=== PATIENT | female | born 1930 | race Caucasian/White ===

== ENCOUNTER → 2017-01-11 | Outpatient (CLI) | payer OTHER ==
[~2017-01-11] MED LIST: ACET-1311 PO; ASCA500 PO; ASPEC81 PO; ATV1 PO; ATV5 PO; B-COTAB53 PO; BIOT1TAB5 PO; CHOL1000 PO; CLC100 PO; CMD5 PO; COEN1TAB3 PO; CRS10 PO; ENOX40IN SQ; FLUO10CA48 PO; GLC/500 PO; GLUC10007; HYDC25 PO; HYDCR25; HYDR12.55 PO; LISI20TA3 PO; LISI40TA PO; MAGN400T6 PO; MECL1TAB40 PO; METH10TA6 PO; MRLP17 PO; MULT-506 PO; OSCD250 PO; OXYC-57 PO; TRAM-10 PO; VITA1TAB4 PO; VITA400C15 PO
--- NOTE | 2017-01-11 15:08 | MAMMOGRAPHY REPORT ---
UNILATERAL LEFT DIGITAL SCREENING MAMMOGRAM TOMOSYNTHESIS WITH CAD: 01/11/2017 CLINICAL HISTORY: Asymptomatic. Personal history of breast cancer. TECHNIQUE: Breast tomosynthesis in addition to standard 2D mammography was performed. Current study was also evaluated with a Computer Aided Detection (CAD) system. Left CC and MLO 2-D and tomosynth esis images were obtained. COMPARISON: Comparison is made to exams dated: 10/20/2014 mammogram, 12/27/2015 mammogram, 08/11/2013 mammogram, 08/09/2012 mammogram, 08/03/2011 mammogram, and 07/21/2010 mammogram - [facility]. BREAST COMPOSITION: There are scattered areas of fibroglandular density in the left breast. FINDINGS: Status post right mastectomy. There are no suspicious masses, calcifications, or areas o f architectural distortion noted in the left breast. There has been no significant interval change compared to prior exams. Scattered benign appearing rodlike calcifications are again noted. IMPRESSION: ACR BI-RADS CATEGORY 2: BENIGN There is no mammographic evidence of malignancy. A 1 year screening mammogram is recommended. The p atient will receive written notification of the results. Approximately 10% of breast cancers are not detected with mammography. A negative mammographic repor t should not delay biopsy if a clinically suggestive mass is present. Yennifer Macedo M.D. /:01/11/2017 14:14:23 Anti Air Warfare Operations Officer: Deya DURAND)([place]), [facility] letter sent: Normal 1/2 BI-RADS Code: ACR BI-RADS Category 2: Benign
== END | disposition home or self-care (01) ==
LOC: C.MAMM 13:38
PROVIDERS: ATTEND Physician Assistant
DX: Z12.31 Encounter for screening mammogram for malignant neoplasm of breast (principal); Z85.3 Personal history of malignant neoplasm of breast; Z08 Encounter for follow-up examination after completed treatment for malignant neoplasm; Z90.11 Acquired absence of right breast and nipple

== ENCOUNTER → 2017-04-03 | Day surgery (SDC) | payer OTHER ==
[2017-03-15 11:11] VITALS: Ht 168.9 cm; Wt 107.7 kg
[~2017-04-03] VITALS: Ht 168.9 cm; Wt 107.7 kg
[~2017-04-03] MED LIST changes: +500ML BSS 0.3ML EPI 1:1000PF IRRIG ONE; -ACET-1311 PO; +ACETAMINOPHEN 325 MG TAB PO PRN; +AMVISC PLUS 0.8ML SYRINGE INT OCU ONE; +ATROPINE SULFATE 0.1 MG/ML 5ML SYR IV PRN; -ATV1 PO; -ATV5 PO; +BSS FLUSH ONE; -CLC100 PO; -ENOX40IN SQ; +EpHEDrine SULFATE INJ 50 MG/ML AMP IV PRN; +EpINEphrine INJ 1MG/ML AMP 1 MG/ML AMP ONE; +FENTANYL CITRATE INJ 50 MCG/1 ML 2 ML VIAL IV PRN; +FLUMAZENIL 0.1 MG/1 ML 10 ML VIAL IV PRN; +GATIFLOXACIN OP SOLN PER DROP CHARGE OPL SCH; -GLUC10007; -HYDC25 PO; -HYDCR25; +HYDROmorphone INJ 2 MG/ML SYR/VIAL IV PRN; +LABETALOL HCL IV 5 MG/ML 20ML IV PRN; +LACTATED RINGER'S 1000ML 500 ML IV SCH; +LIDOCAINE 3.5% OPH GEL PER APPLICATION CHARGE ONE; +LIDOCAINE HCL 1% MPF 2 ML VIAL ONE; -LISI40TA PO; +MEPERIDINE HCL 25 MG/ML CARP IV PRN; +MIDAZOLAM HCL 1 MG/ML 2ML VIAL ONE; -MRLP17 PO; +NALOXONE HCL 0.4 MG/1 ML VIAL/CARP IV PRN; +OCUCOAT 1 ML SOLN IO ONE; +ONDANSETRON INJ 2 MG/ML 2 ML VIAL IV PRN; -OSCD250 PO; -OXYC-57 PO; +PHENYLEPHRINE 100MCG/ML 5ML SYR IV PRN; +PHENYLEPHRINE HCL 10% OP SOLN PER DROP CHARGE OPL SCH; +POVIDONE-IODINE OP SOLN 30 ML BTL ONE; +PROPARACAINE 0.5% OP SOLN PER DROP CHARGE OPL SCH; +TOBRAMYCIN/DEXAMETHASONE OPH OINT PER APPLN CHARGE ONE; -VITA400C15 PO
[2017-04-03] MEDS: PHENYLEPHRINE HCL 2.5% OP SOLN PER DROP CHARGE OPL SCH ×2 (07:51→07:57)
[2017-04-03] MEDS: TROPICAMIDE 1% OP SOLN PER DROP CHARGE OPL SCH ×2 (07:52→07:58)
[2017-04-03] MEDS: CYCLOPENTOLATE HCL 1% OP SOLN PER DROP CHARGE OPL SCH ×2 (07:53→07:59)
[2017-04-03] MEDS: KETOROLAC 0.5% OP SOLN PER DROP CHARGE OPL SCH ×2 (07:55→08:00)
[2017-04-03] MEDS: GATIFLOXACIN OP SOLN PER DROP CHARGE OPL SCH ×2 (07:56→08:06)
--- NOTE | 2017-04-03 08:30 | History & Physical Bridge - SC ---
H&P Re-Evaluation Bridge Note: I have examined the patient, reviewed the History & Physical and in the interval since the performance of the History & Physical I have noted the following changes of clinical significance: Diagnosis: Left Cataract Procedure: Left Cataract Removal with Lens Implant No changes noted
--- NOTE | 2017-04-03 09:06 | Discharge Instructions-SurgCtr ---
Discharge Instructions Date of Service Apr 03, 2017. Visit Reason for Visit: Cataract Left Eye Discharge Discharge Diagnosis / Problem: cataract Discharge Goals Goal(s): Improve function Medications Stopped Medications Name(s): metformin last dose 03/31/17 Activity Recommendations Activity Limitations: per Instructions/Follow-up section Anesthesia . Post Anesthesia Instructions: If you have had General Anesthesia or IV Sedation: * Do not drive today. * Resume driving when surgeon permits. * Do not make important decisions or sign legal documents today. * Call surgeon for: 1. Temperature elevations greater than 101 degrees F. 2. Uncontrollable pain. 3. Excessive bleeding. 4. Persistent nausea and vomiting. 5. Medication intolerance (nausea, vomiting or rash). * For nausea and vomiting use only clear liquids such as: tea, soda, bouillon until nausea subsides, then gradually increase diet as tolerated. * If you have any concerns or questions, call your surgeon's office. If physician is unavailable and it is an emergency, call 911 or go to the nearest emergency room. . Instructions / Follow-Up Instructions / Follow-Up ACTIVITY RECOMMENDATIONS: * No strenuous lifting, jogging or running for 4 days * No swimming or yard work for 1 week. * Limited bending is permitted, such as putting on shoes. RETURN TO SCHOOL/WORK: No work until seen by physician in office. MEDICATIONS: Resume previous medications unless instructed otherwise by your surgeon. This includes eye drops for glaucoma. Zymaxid/Gatifloxacin (castillo cap) - one drop every 2 hours until bedtime Nevanac/Ilevro/Prolensa/Ketorolac (bailey cap) - one drop every 4 hours until bedtime Prednisolone (white/pink cap, SHAKE WELL) - one drop every 2 hours until bedtime Starting tomorrow - all 3 drops every 4 hours until seen in the office Optive drops - as needed for discomfort SPECIAL CARE INSTRUCTIONS: * Wear eyeshield when sleeping, for four nights. * You may wear your own glasses or sunglasses while awake. * You may read or watch TV * You may shower and wash your face, but be gentle around the eye and pat dry. * Blurry vision and mild irritation are normal. * Call office if pain is more severe or vision becomes dark at . FOLLOW UP VISIT: Follow-up with Dr Chapman tomorrow. Diet Recommendations Home Diet: resume previous diet Procedures Procedures Performed: Left Cataract Phacoemulsification With Intraocular Lens Implant Pending Studies Studies pending at discharge: no Medical Emergencies . Who to Call and When: Medical Emergencies: If at any time you feel your situation is an emergency, please call 911 immediately. . Non-Emergent Contact Non-Emergency issues call your: Beauty School Instructor . . "Provider Documentation" section prepared by Edenilson Chapman. .
--- NOTE | 2017-04-03 09:07 | [facility] Operative Report ---
Operative Report Date of Service Apr 03, 2017. Operative Report 1. PREOPERATIVE DIAGNOSIS: Cataract of the left eye. 2. POSTOPERATIVE DIAGNOSIS: Same. 3. PROCEDURE: Phacoemulsification with intraocular lens implantation of the left eye. SURGEON: Dr. Edenilson Chapman. ANESTHESIA: Topical Lidocaine gel, 1% Non- Preserved intracameral Lidocaine, and monitored intravenous sedation. INDICATIONS FOR THE PROCEDURE: The patient is a 86 - year-old female with a history of cataract of the left eye causing significant visual impairment. The details of the proposed procedure were explained to the patient who asked appropriate questions and following discussion of all risks, benefits and alternatives agreed to have the procedure done. 4. OPERATION AND FINDINGS: DESCRIPTION OF PROCEDURE: After informed consent was obtained, the patient was brought to the Operating Room at the [facility]. The patient was placed in a supine position and then the left eye was prepped and draped in the usual sterile fashion for intraocular surgery. A drop of topical Lidocaine gel was placed in the operative eye. A wire lid speculum was then placed in the fornices. A corneal paracentesis was then created temporally. The Non-Preserved Lidocaine was then instilled into the anterior chamber. The anterior chamber was then pressurized with viscoelastic. A 2.0 mm clear corneal incision was then created temporally. A cystotome was inserted into the anterior chamber and used to create a tear in the anterior lens capsule. This capsular tear was then used to create a small flap and the flap was dragged in a counterclockwise direction in order to create a continuous curvilinear capsulorrhexis. Hydrodissection was accomplished with balanced salt solution. Phacoemulsification of the lens nucleus was then performed in a standard [id number]-[id number] technique. The phaco time was 19 seconds with an average power of 14 %. The remaining cortical material was removed using irrigation aspiration. The capsular bag was then filled with viscoelastic. A Bausch & Lomb MI60L +20.0 diopters lens was then loaded into the injector and injected into the capsular bag. The remaining viscoelastic was removed with the irrigation aspiration handpiece. The wound was hydrated and then checked and found to be watertight. The intraocular pressure was checked and found to be adequate. The wire lid speculum was removed and the patient's face was cleaned and dried. TobraDex ointment was placed in the inferior fornix. The patient was discharged to the Recovery Room having tolerated the procedure well. There were no complications. The patient will be seen tomorrow in the office for follow-up. I attest to the content of the Intraoperative Record and any orders documented therein. Any exceptions are noted below.
[2017-04-03 09:10] VITALS: TEMP 36.6
--- NOTE | 2017-04-03 09:23 | Anesthesia Progress Nt - [facility] ---
Anesthesia Post Op Note Date & Time Apr 03, 2017 at 09:23 Vital Signs Pain Intensity: 0 Vital Signs Past 12 Hours Date Time Temp Pulse Resp B/P (MAP) Pulse Ox O2 Delivery O2 Flow Rate FiO2 04/03/17 09:10 36.6 48 16 162/72 (102) 96 Room Air 04/03/17 07:40 36.4 49 18 164/89 (114) 95 Room Air Notes Mental Status: alert / awake / arousable, participated in evaluation Pt Amnestic to Procedure: Yes Nausea / Vomiting: adequately controlled Pain: adequately controlled Airway Patency, RR, SpO2: stable & adequate BP & HR: stable & adequate Hydration State: stable & adequate Anesthetic Complications: no major complications apparent
[2017-04-03 09:36] VITALS: BP 155/79; PULSE 45; O2SAT 98
== END | disposition home or self-care (01) ==
LOC: X.SURG 07:22
PROVIDERS: ATTEND Ophthalmology
DX: H26.9 Unspecified cataract (principal); H40.9 Unspecified glaucoma; I48.0 Paroxysmal atrial fibrillation; M19.90 Unspecified osteoarthritis, unspecified site; E11.36 Type 2 diabetes mellitus with diabetic cataract; E66.9 Obesity, unspecified; Z90.11 Acquired absence of right breast and nipple; Z96.659 Presence of unspecified artificial knee joint; Z86.711 Personal history of pulmonary embolism; Z68.37 Body mass index [BMI] 37.0-37.9, adult; Z88.1 Allergy status to other antibiotic agents; Z79.01 Long term (current) use of anticoagulants

== ENCOUNTER → 2017-05-29 | Day surgery (SDC) | payer OTHER ==
[2017-05-04 12:10] VITALS: Ht 168.9 cm; Wt 107.7 kg
[~2017-05-29] VITALS: Ht 168.9 cm; Wt 107.7 kg
[~2017-05-29] MED LIST changes: -FENTANYL CITRATE INJ 50 MCG/1 ML 2 ML VIAL IV PRN; -FLUMAZENIL 0.1 MG/1 ML 10 ML VIAL IV PRN; -GATIFLOXACIN OP SOLN PER DROP CHARGE OPL SCH; -HYDROmorphone INJ 2 MG/ML SYR/VIAL IV PRN; -LABETALOL HCL IV 5 MG/ML 20ML IV PRN; -MEPERIDINE HCL 25 MG/ML CARP IV PRN; -NALOXONE HCL 0.4 MG/1 ML VIAL/CARP IV PRN; -ONDANSETRON INJ 2 MG/ML 2 ML VIAL IV PRN; -PHENYLEPHRINE 100MCG/ML 5ML SYR IV PRN; -PHENYLEPHRINE HCL 10% OP SOLN PER DROP CHARGE OPL SCH; +PHENYLEPHRINE HCL 10% OP SOLN PER DROP CHARGE OPR SCH; -PROPARACAINE 0.5% OP SOLN PER DROP CHARGE OPL SCH; +PROPARACAINE 0.5% OP SOLN PER DROP CHARGE OPR SCH
[2017-05-29] MEDS: PHENYLEPHRINE HCL 2.5% OP SOLN PER DROP CHARGE OPR SCH ×2 (10:55→11:01)
[2017-05-29] MEDS: TROPICAMIDE 1% OP SOLN PER DROP CHARGE OPR SCH ×2 (10:56→11:01)
[2017-05-29] MEDS: CYCLOPENTOLATE HCL 1% OP SOLN PER DROP CHARGE OPR SCH ×2 (10:57→11:02)
[2017-05-29] MEDS: KETOROLAC 0.5% OP SOLN PER DROP CHARGE OPR SCH ×2 (10:58→11:03)
[2017-05-29] MEDS: GATIFLOXACIN OP SOLN PER DROP CHARGE OPR SCH ×2 (10:59→11:05)
--- NOTE | 2017-05-29 11:21 | History & Physical Bridge - SC ---
H&P Re-Evaluation Bridge Note: I have examined the patient, reviewed the History & Physical and in the interval since the performance of the History & Physical I have noted the following changes of clinical significance: No changes noted
--- NOTE | 2017-05-29 12:01 | Discharge Instructions-SurgCtr ---
Discharge Instructions Date of Service May 29, 2017. Visit Reason for Visit: Right Cataract Discharge Discharge Diagnosis / Problem: cataract Discharge Goals Goal(s): Improve function Activity Recommendations Activity Limitations: per Instructions/Follow-up section Anesthesia . Post Anesthesia Instructions: If you have had General Anesthesia or IV Sedation: * Do not drive today. * Resume driving when surgeon permits. * Do not make important decisions or sign legal documents today. * Call surgeon for: 1. Temperature elevations greater than 101 degrees F. 2. Uncontrollable pain. 3. Excessive bleeding. 4. Persistent nausea and vomiting. 5. Medication intolerance (nausea, vomiting or rash). * For nausea and vomiting use only clear liquids such as: tea, soda, bouillon until nausea subsides, then gradually increase diet as tolerated. * If you have any concerns or questions, call your surgeon's office. If physician is unavailable and it is an emergency, call 911 or go to the nearest emergency room. . Instructions / Follow-Up Instructions / Follow-Up ACTIVITY RECOMMENDATIONS: * No strenuous lifting, jogging or running for 4 days * No swimming or yard work for 1 week. * Limited bending is permitted, such as putting on shoes. RETURN TO SCHOOL/WORK: No work until seen by physician in office. MEDICATIONS: Resume previous medications unless instructed otherwise by your surgeon. This includes eye drops for glaucoma. Zymaxid/Gatifloxacin (castillo cap) - one drop every 2 hours until bedtime Nevanac/Ilevro/Prolensa/Ketorolac (baliey cap) - one drop every 4 hours until bedtime Prednisolone/Durezol (white/pink cap, SHAKE WELL) - one drop every 2 hours until bedtime Starting tomorrow - all 3 drops every 4 hours until seen in the office Optive drops - as needed for discomfort SPECIAL CARE INSTRUCTIONS: * Wear eyeshield when sleeping, for four nights. * You may wear your own glasses or sunglasses while awake. * You may read or watch TV * You may shower and wash your face, but be gentle around the eye and pat dry. * Blurry vision and mild irritation are normal. * Call office if pain is more severe or vision becomes dark at . FOLLOW UP VISIT: Follow-up with Dr Chapman tomorrow. Diet Recommendations Home Diet: resume previous diet Procedures Procedures Performed: Right Cataract Phacoemulsification With Intraocular Lens Implant Pending Studies Studies pending at discharge: no Medical Emergencies . Who to Call and When: Medical Emergencies: If at any time you feel your situation is an emergency, please call 911 immediately. . Non-Emergent Contact Non-Emergency issues call your: Door Repairer Bus . . "Provider Documentation" section prepared by Edenilson Chapman. .
--- NOTE | 2017-05-29 12:01 | [facility] Operative Report ---
Operative Report Date of Service May 29, 2017. Operative Report 1. PREOPERATIVE DIAGNOSIS: Cataract of the right eye. 2. POSTOPERATIVE DIAGNOSIS: Same. 3. PROCEDURE: Phacoemulsification with intraocular lens implantation of the right eye. SURGEON: Dr. Edenilson Chapman. ANESTHESIA: Topical Lidocaine gel, 1% Non- Preserved intracameral Lidocaine, and monitored intravenous sedation. INDICATIONS FOR THE PROCEDURE: The patient is a 86 - year-old female with a history of cataract of the right eye causing significant visual impairment. The details of the proposed procedure were explained to the patient who asked appropriate questions and following discussion of all risks, benefits and alternatives agreed to have the procedure done. 4. OPERATION AND FINDINGS: DESCRIPTION OF PROCEDURE: After informed consent was obtained, the patient was brought to the Operating Room at the [facility]. The patient was placed in a supine position and then the right eye was prepped and draped in the usual sterile fashion for intraocular surgery. A drop of topical Lidocaine gel was placed in the operative eye. A wire lid speculum was then placed in the fornices. A corneal paracentesis was then created temporally. The Non-Preserved Lidocaine was then instilled into the anterior chamber. The anterior chamber was then pressurized with viscoelastic. A 2.0 mm clear corneal incision was then created temporally. A cystotome was inserted into the anterior chamber and used to create a tear in the anterior lens capsule. This capsular tear was then used to create a small flap and the flap was dragged in a counterclockwise direction in order to create a continuous curvilinear capsulorrhexis. Hydrodissection was accomplished with balanced salt solution. Phacoemulsification of the lens nucleus was then performed in a standard [id number]-eghsobu technique. The phaco time was 27 seconds with an average power of 11 %. The remaining cortical material was removed using irrigation aspiration. The capsular bag was then filled with viscoelastic. A Bausch & Lomb MI60L +20.5 diopters lens was then loaded into the injector and injected into the capsular bag. The remaining viscoelastic was removed with the irrigation aspiration handpiece. The wound was hydrated and then checked and found to be watertight. The intraocular pressure was checked and found to be adequate. The wire lid speculum was removed and the patient's face was cleaned and dried. TobraDex ointment was placed in the inferior fornix. The patient was discharged to the Recovery Room having tolerated the procedure well. There were no complications. The patient will be seen tomorrow in the office for follow-up. I attest to the content of the Intraoperative Record and any orders documented therein. Any exceptions are noted below.
[2017-05-29 12:02] VITALS: TEMP 36.6
--- NOTE | 2017-05-29 12:21 | Anesthesiology Progress Note ---
Anesthesia Post Op Note Date & Time May 29, 2017 at 12:20 Vital Signs Pain Intensity: 0 Vital Signs Past 12 Hours Date Time Temp Pulse Resp B/P (MAP) Pulse Ox O2 Delivery O2 Flow Rate FiO2 05/29/17 12:02 36.6 47 16 175/84 (114) 97 Room Air 05/29/17 10:45 36.4 59 18 186/98 (127) 99 Room Air Notes Mental Status: alert / awake / arousable, participated in evaluation Pt Amnestic to Procedure: Yes Nausea / Vomiting: adequately controlled Pain: adequately controlled Airway Patency, RR, SpO2: stable & adequate BP & HR: stable & adequate Hydration State: stable & adequate Anesthetic Complications: no major complications apparent degree of amnesia appropriate for MAC
[2017-05-29 12:26] VITALS: BP 173/84; PULSE 47; O2SAT 100
== END | disposition home or self-care (01) ==
LOC: X.SURG 10:26
PROVIDERS: ATTEND Ophthalmology
DX: H26.9 Unspecified cataract (principal); M17.10 Unilateral primary osteoarthritis, unspecified knee; I10 Essential (primary) hypertension; E78.5 Hyperlipidemia, unspecified; G47.69 Other sleep related movement disorders; E05.90 Thyrotoxicosis, unspecified without thyrotoxic crisis or storm; G47.30 Sleep apnea, unspecified; I35.0 Nonrheumatic aortic (valve) stenosis; Z85.3 Personal history of malignant neoplasm of breast; Z79.01 Long term (current) use of anticoagulants; Z79.82 Long term (current) use of aspirin; Z83.3 Family history of diabetes mellitus

== ENCOUNTER → 2017-12-19 | Outpatient (CLI) | payer OTHER ==
[~2017-12-19] MED LIST changes: -500ML BSS 0.3ML EPI 1:1000PF IRRIG ONE; -ACETAMINOPHEN 325 MG TAB PO PRN; -AMVISC PLUS 0.8ML SYRINGE INT OCU ONE; -ATROPINE SULFATE 0.1 MG/ML 5ML SYR IV PRN; -BSS FLUSH ONE; -EpHEDrine SULFATE INJ 50 MG/ML AMP IV PRN; -EpINEphrine INJ 1MG/ML AMP 1 MG/ML AMP ONE; -LACTATED RINGER'S 1000ML 500 ML IV SCH; -LIDOCAINE 3.5% OPH GEL PER APPLICATION CHARGE ONE; -LIDOCAINE HCL 1% MPF 2 ML VIAL ONE; -MIDAZOLAM HCL 1 MG/ML 2ML VIAL ONE; -OCUCOAT 1 ML SOLN IO ONE; +OPTIRAY 320 IV PRN; -PHENYLEPHRINE HCL 10% OP SOLN PER DROP CHARGE OPR SCH; -POVIDONE-IODINE OP SOLN 30 ML BTL ONE; -PROPARACAINE 0.5% OP SOLN PER DROP CHARGE OPR SCH; -TOBRAMYCIN/DEXAMETHASONE OPH OINT PER APPLN CHARGE ONE
--- NOTE | 2017-12-19 16:23 | DIAGNOSTIC IMAGING REPORT ---
CT ANGIOGRAM OF THE CHEST CLINICAL HISTORY: Shortness of breath COMPARISON STUDY: 05/20/2010 TECHNIQUE: Following the IV administration of 115 mL of Optiray-320, CT angiogram of the thorax was performed from the thoracic inlet to the lung bases utilizing the pulmonary embolus protocol. Images are reviewed in the axial, sagittal, and coronal planes. IV contrast was administered without complication. MIP imaging was performed. A dose lowering technique was utilized adhering to the principles of ALARA. 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 Mediastinal lymph nodes are the upper limits of normal in size. 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 There is mild ectasia of the ascending thoracic aorta which measures 41 mm. There were no pulmonary artery filling defects to indicate acute pulmonary embolism. There are small bilateral pleural effusions right greater than left. There is no focal pulmonary consolidation. There is subtle groundglass attenuation the lungs with mild interlobular septal thickening. There is a slight mosaic attenuation pattern suggesting air trapping. The heart is enlarged. There are postsurgical changes right mastectomy IMPRESSION: 1. No evidence of acute pulmonary embolism 2. CT findings suggestive of mild congestive failure with cardiomegaly, small bilateral pleural effusions, and interlobular septal thickening. Electronically signed by: Omero Mckeon M.D. 12/19/2017 4:21 PM Dictated Date/Time: 12/19/2017 4:16 PM
== END | disposition home or self-care (01) ==
LOC: C.CTS 15:57
PROVIDERS: ATTEND Family Medicine
DX: R06.02 Shortness of breath (principal); Z86.711 Personal history of pulmonary embolism

== ENCOUNTER → 2018-01-14 | Outpatient (CLI) | payer OTHER ==
[~2018-01-14] MED LIST changes: +FURO-85 PO; -OPTIRAY 320 IV PRN; +TPRSR25 PO
--- NOTE | 2018-01-15 13:03 | MAMMOGRAPHY REPORT ---
UNILATERAL LEFT DIGITAL SCREENING MAMMOGRAM TOMOSYNTHESIS WITH CAD: 01/14/2018 CLINICAL HISTORY: Asymptomatic. Personal history of breast cancer. TECHNIQUE: Left breast tomosynthesis in addition to standard 2D mammography was performed. Current rosie garnica was also evaluated with a Computer Aided Detection (CAD) system. COMPARISON: Comparison is made to exams dated: 01/11/2017 mammogram, 12/27/2015 mammogram, 10/20/2014 m ammogram, 08/11/2013 mammogram, 08/09/2012 mammogram, and 08/03/2011 mammogram - [facility]. BREAST COMPOSITION: There are scattered areas of fibroglandular density in the left breast. FINDINGS: There are diffuse rodlike secretory calcifications and benign vascular calcifications in th e left breast. No suspicious mass, architectural distortion or cluster of suspicious microcalcificat ions is seen. IMPRESSION: ACR BI-RADS CATEGORY 1: NEGATIVE There is no mammographic evidence of malignancy in the left breast. A 1 year screening mammogram is r ecommended. The patient will receive written notification of the results. Approximately 10% of breast cancers are not detected with mammography. A negative mammographic report should not delay biopsy if a clinically suggestive mass is present. Jennie Garcia M.D. ay/:01/14/2018 14:14:07 Parts Inspector: Bettina CELIS(Levi)(M), [facility] letter sent: Normal 1/2 BI-RADS Code: ACR BI-RADS Category 1: Negative
== END | disposition home or self-care (01) ==
LOC: C.MAMM 13:39
PROVIDERS: ATTEND Physician Assistant
DX: Z12.31 Encounter for screening mammogram for malignant neoplasm of breast (principal); Z85.3 Personal history of malignant neoplasm of breast; Z90.11 Acquired absence of right breast and nipple

== ENCOUNTER 2018-01-29 06:24 | Observation (INO) | payer OTHER ==
[~2018-01-29] VITALS: Ht 162.6 cm; Wt 104.5 kg
[2018-01-29] VITALS (17 sets, daily range): BP systolic 126–172; BP diastolic 59–83; PULSE 48–77; TEMP 36.6–36.9; O2SAT 95–99; Ht 162.6 cm; Wt 104.5 kg
[~2018-01-29 06:24] MED LIST changes: +CEFAZOLIN 1000MG IV PUSH 7.5 ML IV SCH; +CEFAZOLIN 2000MG IV PUSH 15 ML IV SCH; -FURO-85 PO; +LACTATED RINGER'S 1000ML IV SCH; -TPRSR25 PO
[2018-01-29] MEDS ORDERED: FURO-85 PO (06:49)
[2018-01-29] MEDS ORDERED: LIDOCAINE HCL 1% 20 ML VIAL ONE (07:18)
[2018-01-29] MEDS ORDERED: BUPIVACAINE 0.5 % 5 MG/1 ML MPF 30ML VIAL ONE (07:19)
[2018-01-29] MEDS ORDERED: BACITRACIN 50000 UNIT VIAL ONE (07:20)
--- NOTE | 2018-01-29 08:08 | Pre Sedation Assessment ---
Pre Sedation Assessment General Date of Sedation: Jan 29, 2018. Vital Signs Past 12 Hours Date Time Temp Pulse Resp B/P (MAP) Pulse Ox O2 Delivery O2 Flow Rate FiO2 01/29/18 06:56 36.9 48 18 168/59 (95) 96 Room Air Review Cardiovascular: + bradycardia Lungs: lungs clear Pre-Sedation Airway Assessment Smoking Status: Never Smoker Hx of difficult intubation: No Short Thick Neck: No Thyro-mental Distance: < or =3 Finger Breadths Oral Cavity: WNL Mallampati Classification: Class II ASA Classification: Class II NPO Status Date of Last Intake of Fluids: Jan 28, 2018 Time of Last Intake of Fluids: 1999 Date of Last Intake of Solids: Jan 28, 2018 Time of Last Intake of Solids: 1999 Procedure Planning Contraindications for Sedation: None Current Medications Reviewed: Yes Notes The planned sedation has been discussed with the patient. Informed Consent was obtained. I have identified the patient, determined the appropriateness of sedation and have assessed the patient immediately prior to the procedure. All medicine(s) and interventions are by my order.
[2018-01-29] MEDS ORDERED: MIDAZOLAM HCL 5 MG/ML 1 ML VIAL ONE ×2 (08:31→09:14)
[2018-01-29] MEDS ORDERED: FENTANYL CITRATE INJ 50 MCG/1 ML 2 ML VIAL ONE ×2 (08:31→09:08)
--- NOTE | 2018-01-29 09:54 | Post Sedation Assessment ---
Post Sedation Assessment General Date of Sedation Jan 29, 2018. Vital Signs: Vital Signs Past 12 Hours Date Time Temp Pulse Resp B/P (MAP) Pulse Ox O2 Delivery O2 Flow Rate FiO2 01/29/18 09:45 60 16 134/68 (90) 100 Mask 3 01/29/18 06:56 36.9 48 18 168/59 (95) 96 Room Air Post Procedure Recovery Score Activity: (2) Moves 4 extremities * Respiration: (2) Deep breath/cough Circulation: (2) +/-20% PreAnes Value Consciousness: (2) Fully Awake Oxygen Saturation: (1) O2 needed for >90% Post Anesthesia Score: 9 Discharge Sedation Level of Care: Fast Track Phase II Post Sedation Plan On clinical assessment, the patient appears to have tolerated the sedation without complications. Patient is recovering as anticipated. Patient will continue to be monitored by nursing and may be discharged when sedation discharge criteria are met per below protocol. Upon Completions of procedure and additional 15 minutes continue every 5 minute vital signs and the P.A.R. score; then discharge to a Phase I or Fast Track to Phase II per the following guidelines: * Discharge Patient to appropriate Phase II area if PAR is 8 or greater or return to pre- procedure baseline. The post - procedure orders will be as directed. * If PAR score is less than 8 or not return to pre-procedure baseline then patient will follow Phase I monitoring till PAR is reached for Phase II. The Phase I may be done in procedure room or may call to secure a Phase I area. * If naloxone or flumazenil are used for reversal, hold in Phase I for an additional 60 -120 minutes before discharge to Phase II. Please call the Sedation Physician to re-evaluate and complete post-note for discharge to Phase II area. Do NOT discharge from procedure sedation or Phase 1 until post- sedation evaluation note is complete by procedure /sedation MD Sedation Discharge Instructions to be given to the patient at discharge to home.
--- NOTE | 2018-01-29 09:55 | [facility] Post Operative Brief Note ---
Immediate Operative Summary Operative Date Jan 29, 2018. Pre-Operative Diagnosis SSS Post-Operative Diagnosis same Procedure(s) Performed dual chamber rate responsive permanent pacemaker under fluroscopic guidance Surgeon reagan bonilla Cost Clerk Surgeon(s) none Estimated Blood Loss 25cc Findings See Below see official report Fluids (cc crystalloids) 150cc Specimens none Drains None Anesthesia Type IV Sedat Cons RN Only Complication(s) none Disposition Accompanied Pt To Recover: yes Disposition: PCU
--- NOTE | 2018-01-29 09:57 | Discharge Instructions ---
Discharge Instructions Date of Service Jan 29, 2018. Admission Reason for Admission: Sick Sinus Syndrome Discharge Discharge Diagnosis / Problem: SSS Discharge Goals Goal(s): Improve function Activity Recommendations Activity Limitations: as noted below Lifting Limitations: no more than 10 pounds (do not lift the left elbow over the left shoulder for 1 month; do not lift more than 10 pounds with the left arm for 2 weeks) Shower/Bathe: tomorrow Driving or Machine Use: resume 1 day after discharge . Instructions / Follow-Up Instructions / Follow-Up ACTIVITY RECOMMENDATIONS: * Do not raise affected arm over head for 4 weeks. SPECIAL CARE INSTRUCTIONS: * If bleeding occurs, apply direct pressure to area for 5 minutes. * Call your doctor if you have severe pain, fever, drainage or bleeding at site. * Keep dry for 24 hours. * Keep any scheduled doctor's appointment. * Implant Card - hand held device with website information given. SKIN IRRITATION: * You may experience some redness and/or swelling in the area where radiation was administered. If any skin irritation occurs, please contact your family physician. FOLLOW UP VISIT: Keep any scheduled doctor appointments. Current Hospital Diet Patient's current hospital diet: AHA Diet (Heart Healthy), Diabetes Type 2 Diet Discharge Diet Recommended Diet: AHA Diet (Heart Healthy), Diabetes Type 2 Diet Procedures Procedures Performed: dual chamber rate responsive permanent pacemaker under fluroscopic guidance Pending Studies Studies pending at discharge: no Medical Emergencies . Who to Call and When: Medical Emergencies: If at any time you feel your situation is an emergency, please call 911 immediately. . Non-Emergent Contact Non-Emergency issues call your: Candy Rolling Machine Operator . . "Provider Documentation" section prepared by Chio Felton. .
[2018-01-29] MEDS ORDERED: TRAMADOL HCL 50 MG TAB PO PRN (10:00)
[2018-01-29] MEDS ORDERED: ACETAMINOPHEN 325 MG TAB PO PRN (10:00)
[2018-01-29] MEDS ORDERED: TPRSR25 PO (10:02)
--- NOTE | 2018-01-29 10:02 | Discharge Summary ---
Discharge Summary Date of Service Jan 29, 2018. 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 DM CKD Stage III Procedures: dual chamber rate responsive permanent pacemaker under fluoroscopic guidance Medication Reconciliation New Medications: Metoprolol Succinate (Metoprolol Succinate ER) 25 Mg Tabcr 25 MG PO QAM for 30 Days Continued Medications: Ascorbic Acid (Vitamin C) 500 Mg Tab 1 TAB PO QAM Aspirin Enteric Coated (Ecotrin Or Generic *) 81 Mg Ectab 81 MG PO QAM B-Complex W/ Folic Acid (B Complex) 1 Tab Tab 1 TAB PO QAM Biotin (Biotin) 1,000 Mcg Tab 1 TAB PO QAM Cholecalciferol (Vitamin D3) 1,000 Unit Tab 1 TAB PO QAM Coenzyme Q10 (Ubidecarenone) (Coenzyme Q10) 100 Mg Tab 1 TAB PO QAM Fluoxetine (Prozac) 10 Mg Cap 10 MG PO QAM Furosemide (Lasix) 20 Mg Tab Unknown Dose PO DAILY for 90 Days, TAB 3 Refills Lisinopril (Prinivil) 20 Mg Tab 20 MG PO BID Magnesium Oxide (Mag-Ox) 400 Mg Tab 400 MG PO QAM Meclizine Hcl (Meclizine Hcl) 12.5 Mg Tab 1 TAB PO TID PRN for VERTIGO Metformin Hcl (Glucophage) 500 Mg Tab 500 MG PO BIDM Methimazole (Methimazole) 10 Mg Tab 1 TAB PO QAM Multivitamin (Multivitamin) Tab 1 TAB PO QAM Rosuvastatin Calcium (Crestor *) 10 Mg Tab 10 MG PO QPM Tramadol (Ultram) 50 Mg Tab 50 MG PO Q4H PRN for Pain Vitamin E (Vitamin E) 400 Unit Tab 1 TAB PO BID Warfarin Sod (Coumadin *) 5 Mg Tab 5 MG PO 6XWK, 0 Refills SUN,TUES,WED,THURS,FRI,SAT Warfarin Sod (Coumadin) 5 Mg Tab 0.5 TAB PO WK SUNDAY Admission Information Physical Exam (per Admitting): aaox3, NAD NC/AT, EOMI Supple, No JVD Bradycardia, +systolic murmur CTA b/l No w/r/r Soft NT/ND No edema b/l LE No focal deficits Skin intact Hospital Course Pt admitted for elective perament pacemaker due to sick sinus syndrome. Pt underwent procedure without any complications-started on Toprol due to frequent PVCs. Monitored overnight and discharged home. Total time spent on discharge = > 30 minutes This includes examination of the patient, discharge planning, medication reconciliation, and communication with other providers. Discharge Instructions ACTIVITY RECOMMENDATIONS: * Do not raise affected arm over head for 4 weeks. SPECIAL CARE INSTRUCTIONS: * If bleeding occurs, apply direct pressure to area for 5 minutes. * Call your doctor if you have severe pain, fever, drainage or bleeding at site. * Keep dry for 24 hours. * Keep any scheduled doctor's appointment. * Implant Card - hand held device with website information given. SKIN IRRITATION: * You may experience some redness and/or swelling in the area where radiation was administered. If any skin irritation occurs, please contact your family physician. FOLLOW UP VISIT: Keep any scheduled doctor appointments.
[2018-01-29] MEDS ORDERED: IV FLUIDS COMPLETED PRN (10:30)
--- NOTE | 2018-01-29 11:04 | OPERATIVE REPORT ---
DATE OF OPERATION: 01/29/2018 PREOPERATIVE DIAGNOSIS: Sick sinus syndrome. POSTOPERATIVE DIAGNOSIS: Same. PROCEDURE: Dual chamber rate responsive permanent pacemaker under fluoroscopic guidance. SURGEON: Chio Felton DO PASTE UP ARTIST: None. ANESTHESIA: Monitored conscious sedation administered under my supervision by Barbara Barton. Start time 8:35; end time 9:45. Total of 8 mg of Versed, 200 mcg of fentanyl. IV FLUIDS: 150 mL. BLOOD LOSS: 25 mL. ANTIBIOTICS: Two grams of Ancef. COMPLICATIONS: None. CONDITION: Stable. URINE OUTPUT: Not applicable. SPECIMENS: None. FINDINGS: See below. DRAINS: None. INDICATIONS: This is an 87-year-old female with past medical history for aortic stenosis when she is status post TAVR in November 2017, hypertension, hyperlipidemia, hyperthyroidism, history of PE on Coumadin since over 10 years ago, diabetes, chronic kidney disease stage III. She has been having evidence of sick sinus syndrome and was recommended pacemaker. CONSENT: Consent was obtained prior to the patient going into electrophysiology lab. The patient was informed of risks, benefits, and alternatives of the procedure. Risks include but not limited to sudden cardiac , cardiac arrhythmias, cerebrovascular accident, myocardial infarction, injury to the blood vessels, chamber of the heart, lung, bleeding and infection. The patient understood these risks and agreed to the procedure as planned. Informed consent was obtained. DESCRIPTION OF PROCEDURE: The patient was brought into the electrophysiology lab in a fasting state. Next, she was connected to continuous hospital monitor. Timeout was performed to ensure patient's identity and procedure correctly. The patient was prepped and draped over the left infraclavicular space in normal surgical standard fashion. Monitored conscious sedation was given throughout the procedure for patient's comfort level. [place] precautions were maintained throughout the procedure. 10 mL of 1% lidocaine, bupivacaine mixture were given in the left deltopectoral groove. Incision was made in left deltopectoral groove. Blunt dissection was performed down to identify the cephalic vein. The cephalic vein was identified and isolated using 0 silk ties. The vein was nicked with an 11 blade and then a guidewire was inserted without any resistance. An 8-Bruneian sheath was inserted over the guidewire without any resistance and the dilator was removed and a second guidewire was inserted through the sheath to allow for retained venous access. The sheath was removed, flushed and the dilator was flushed as well. The 8-Bruneian sheath was inserted over the long guidewire without resistance. Guidewire and dilator were removed. The right ventricular pacing lead was then advanced into right ventricle and positioned into right ventricular apex under fluoroscopic guidance. There was adequate pacing and sensing thresholds and no diaphragmatic stimulation with high output pacing. The 8-Bruneian sheath was peeled away and lead was fixated to pectoralis muscle using 0 silk suture. The 7-Bruneian sheath was then inserted over the retained guidewire without any resistance. The guidewire and dilator were removed. The right atrial lead was then advanced into the right atrium and positioned into right atrial appendage under fluoroscopic guidance. There was adequate pacing and sensing thresholds and no diaphragmatic stimulation at high output pacing. The 7-Bruneian sheath was peeled away and lead was fixated to pectoralis muscle using 0 silk suture. A pursestring was placed around the venous entry point to stop the backbleeding using a 2-[address] needle. Then using blunt dissection over the pectoralis muscle within the pectoralis fascia, a pacemaker pocket was created. The pocket was flushed with copious amounts of bacitracin saline wash and inspected for hemostasis. The pulse generator was then attached to the leads making sure that the pins were in appropriate position, passed set screws and set screws were all tightened. The pulse generator was then placed in the pocket, making sure that the leads were lying flat beneath the device. A stay stitch using 0 silk suture was used to secure the device at the pectoralis muscle. Latisha stat was placed in the pocket since the patient was going back on Coumadin. The incision was closed in 3-layer fashion using 2-0 Vicryl interrupted suture followed by 3-0 interrupted suture, followed by 4-0 Monocryl running stitch and Dermabond was applied. EQUIPMENT: 1. Pulse generator is the [employer] Camila XTDR MRI SureScan W1DR01, serial [id number]. 2. Right atrial lead Medtronic 5076-52 cm, serial #[id number]. 3. Right ventricular lead, Medtronic 5076-58 cm, serial #[id number]. INTRAOPERATIVE TESTIN. Right atrial lead, P waves 1 millivolt, impedance 591 ohms, threshold 1.4 volts at 2.8 milliamps. 2. Right ventricular R waves 5 millivolts, impedance 917 ohms, threshold 0.2 volts at 0.1 milliamps. FINAL MEASUREMENTS THROUGH THE DEVICE: 1. Right atrial lead: P waves 0.9 millivolts, impedance 456 ohms, threshold 0.5 volts at 0.4 milliseconds. 2. Right ventricular lead: R-wave 6.5 millivolts, impedance 627 ohms, threshold 0.5 volts at 0.4 milliseconds. FINAL PARAMETERS: MVP-R at 60/120. Right atrial amplitude 3.5 volts, pulse was 0.4 milliseconds, sensitivity 0.3 millivolts. Right ventricular amplitude 3.5 volts, pulse was 0.4 milliseconds, sensitivity 0.9 millivolts. IMPRESSION: Successful implantation of a dual chamber rate responsive permanent pacemaker under fluoroscopic guidance secondary to sick sinus syndrome. PLAN: Monitor patient overnight, 12-lead ECG, chest x-ray. She is not allowed to lift left elbow or left shoulder for 1 month. She cannot lift more than 10 pounds with the left arm for 2 weeks. She should shower in 2 days, let water run over the incision, do not scrub it. She will be started on Toprol as she is having some frequent PVCs. Hopefully, this will subside them. She will follow up in our [facility] office in 7-10 days for device and wound check. I attest to the content of the Intraoperative Record and any orders documented therein. Any exception s are noted below.
[2018-01-29] MEDS: METOPROLOL SUCC 25MG EXT REL TAB PO SCH (11:43)
[2018-01-29] MEDS: OXYCODONE/ACETAMINOPHEN 5-325 TAB PO PRN ×2 (15:06→20:49)
[2018-01-29] MEDS: METFORMIN HCL 500 MG TAB PO SCH (16:48)
[2018-01-29] MEDS: LISINOPRIL 20 MG TAB PO SCH (20:34)
[2018-01-29] MEDS ORDERED: ROSUVASTATIN CALCIUM 10 MG TAB PO SCH (21:00)
[2018-01-29] MEDS ORDERED: WARFARIN SOD 5 MG TAB PO SCH (22:15)
[2018-01-30 03:33] VITALS: BP 124/75; PULSE 58; TEMP 36.8; O2SAT 99
--- NOTE | 2018-01-30 07:28 | DIAGNOSTIC IMAGING REPORT ---
CHEST 2 VIEWS ROUTINE CLINICAL HISTORY: 87 years-old Female presenting with EXACT TIME ORDERED Evaluate for pneumothorax and lead placement. TECHNIQUE: PA and lateral views of the chest were obtained. COMPARISON: 05/04/2010. FINDINGS: Interval placement of a left subclavian pacer with leads to the right atrium and right ventricular apex. Prosthetic aortic valve noted. Atherosclerosis of the aortic arch. Mild enlargement of the cardiac silhouette, unchanged. Slightly coarsened lung markings. No focal opacity. No large effusion or pneumothorax. Degenerative changes of the thoracic spine. Superior subluxation of the right humeral head suggests rotator cuff tear. Upper abdomen normal. IMPRESSION: 1. Interval 2-lead left subclavian pacer placement. No pneumothorax. 2. Cardiomegaly. Electronically signed by: Jasvir Lui M.D. 01/30/2018 7:27 AM Dictated Date/Time: 01/30/2018 7:26 AM
[2018-01-30] MEDS: METFORMIN HCL 500 MG TAB PO SCH (07:55)
[2018-01-30] MEDS: METOPROLOL SUCC 25MG EXT REL TAB PO SCH (07:55)
[2018-01-30] MEDS: LISINOPRIL 20 MG TAB PO SCH (07:55)
[2018-01-30 08:08] VITALS: BP 126/60; PULSE 84; TEMP 36.6; O2SAT 97
--- NOTE | 2018-01-30 08:42 | Cardiology Follow-Up ---
Subjective Subjective Date of Service: Jan 30, 2018. Pt evaluation today including: conversation w/ patient, physical exam, chart review, review of studies Pain: minimal discomfort at the incision site Review of Systems Constitutional: No weakness, No fatigue Respiratory: No shortness of breath Cardiac: No chest pain, No edema, No palpitations Abdomen: No nausea, No diarrhea Neurologic: No weakness Psychiatric: No anxiety Endo: No fatigue Objective Vital Signs Last Vital Signs Documentation Date Time Temp Pulse Resp B/P (MAP) Pulse Ox O2 Delivery O2 Flow Rate FiO2 01/30/18 08:08 36.6 84 18 126/60 (82) 97 Room Air 01/29/18 09:45 3 Physical Exam: General Appearance: WD/WN, no apparent distress Eyes: bilateral eyes PERRL, bilateral eyes abnormal EOM Neck: supple, no JVD Respiratory/Chest: lungs clear, normal breath sounds Cardiovascular: regular rate, rhythm, no edema, no murmur Abdomen: soft Extremities: no pedal edema Neurologic/Psychiatric: alert, oriented x 3 Skin: warm/dry (left pectoral incision intact; no hematoma; mild ecchymosis), no rash Assessment and Plan Impression: SSS s/p dual chamber pacemaker 01/29/2018 s/p 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 Q6H PRN PO 01/29/18 10:00 02/12/18 09:59 01/29/18 20:49 1 TAB Acetaminophen (Tylenol Tab) 650 mg Q4H PRN PO 01/29/18 10:00 02/28/18 09:59 01/29/18 11:43 650 MG Ascorbic Acid (Vitamin C Tab) 500 mg QAM PO 01/30/18 09:00 03/01/18 08:59 01/30/18 07:56 500 MG Aspirin (Ecotrin Tab) 81 mg QAM PO 01/30/18 09:00 03/01/18 08:59 01/30/18 07:56 81 MG Fluoxetine HCl (Prozac Cap) 10 mg QAM PO 01/30/18 09:00 03/01/18 08:59 01/30/18 07:55 10 MG Lisinopril (Zestril Tab) 20 mg BID PO 01/29/18 21:00 02/28/18 20:59 01/30/18 07:55 20 MG Magnesium Oxide (Mag-Ox Tab) 400 mg QAM PO 01/30/18 09:00 03/01/18 08:59 01/30/18 07:56 400 MG Metformin HCl (Glucophage Tab) 500 mg BIDM PO 01/29/18 16:45 02/28/18 17:59 01/30/18 07:55 500 MG Multivitamins (Multivitamin Tab) 1 tab QAM PO 01/30/18 09:00 03/01/18 08:59 01/30/18 07:55 1 TAB Rosuvastatin Calcium (Crestor Tab) 10 mg QPM PO 01/29/18 21:00 02/28/18 20:59 01/29/18 20:33 10 MG Tramadol HCl (Ultram Tab) 50 mg Q4H PRN PO 01/29/18 10:00 02/28/18 09:59 01/29/18 21:43 50 MG Warfarin Sodium (Coumadin Tab) 5 mg DAILY@1600 PO 01/29/18 22:15 02/28/18 22:14 01/29/18 22:11 5 MG Methimazole (Methimazole Tab) 10 mg QAM PO 01/30/18 09:00 03/01/18 08:59 01/30/18 07:56 10 MG Furosemide (Lasix Tab) 20 mg DAILY PO 01/30/18 09:00 03/01/18 08:59 01/30/18 07:56 20 MG Metoprolol Succinate (Toprol Xl Tab) 25 mg QAM PO 01/29/18 11:30 02/28/18 11:29 01/30/18 07:55 25 MG Lab Results: ECG: AP-VS Telemetry: AP CXR: leads in place no PTX Pacemaker interrogation today: normal and stable lead testing since implant yesterday Last 24 Hours Test 01/29/18 16:47 01/29/18 20:35 01/29/18 21:32 01/30/18 07:10 Bedside Glucose 147 mg/dl 93 mg/dl 112 mg/dl Prothrombin Time 10.9 SECONDS Prothromb Time International Ratio 1.0 Test 01/30/18 07:34 Prothrombin Time 11.0 SECONDS Prothromb Time International Ratio 1.0
[2018-01-30] MEDS ORDERED: ASPIRIN 81 MG ECTAB PO SCH (09:00)
[2018-01-30] MEDS ORDERED: METHIMAZOLE 5 MG TAB PO SCH (09:00)
[2018-01-30] MEDS ORDERED: FLUOXETINE HCL 10 MG CAP PO SCH (09:00)
[2018-01-30] MEDS ORDERED: FUROSEMIDE 20 MG TAB PO SCH (09:00)
[2018-01-30] MEDS ORDERED: ASCORBIC ACID 500 MG TAB PO SCH (09:00)
[2018-01-30] MEDS ORDERED: MULTIVITAMIN TAB PO SCH (09:00)
[2018-01-30] MEDS ORDERED: MAGNESIUM OXIDE 400 MG TAB PO SCH (09:00)
[2018-01-30 10:04] VITALS: BP 126/60; PULSE 84; TEMP 36.6; O2SAT 97
== END 2018-01-30 10:44 | disposition home or self-care (01) ==
LOC: C.ACU 06:24 → C.2T 09:36 → ENRESERV 09:44
PROVIDERS: ADMIT Internal Medicine; ATTEND Internal Medicine
DX: I49.5 Sick sinus syndrome (principal); D64.9 Anemia, unspecified; E78.5 Hyperlipidemia, unspecified; I12.9 Hypertensive chronic kidney disease with stage 1 through stage 4 chronic kidney disease, or unspecified chronic kidney disease; E11.9 Type 2 diabetes mellitus without complications; N18.3 Chronic kidney disease, stage 3 (moderate); E05.90 Thyrotoxicosis, unspecified without thyrotoxic crisis or storm; E66.9 Obesity, unspecified; Z68.39 Body mass index [BMI] 39.0-39.9, adult; Z79.01 Long term (current) use of anticoagulants; Z86.711 Personal history of pulmonary embolism; Z95.2 Presence of prosthetic heart valve; Z85.3 Personal history of malignant neoplasm of breast; Z90.11 Acquired absence of right breast and nipple; Z79.82 Long term (current) use of aspirin

== ENCOUNTER 2019-06-24 23:23 | Inpatient (IN) ==
[2019-06-24] MEDS ORDERED: SODIUM CHLORIDE 0.9% 1000ML 1,000 ML IV SCH (23:45)
[2019-06-24] MEDS ORDERED: ACETAMINOPHEN 1,000 MG/100 ML VIAL IV STA (23:50)
[2019-06-25 00:03] LABS: Basophils # (auto) 0.01 K/uL (0-0.2); Basophils % (auto) 0.1 %; Hematocrit (blood only) 39.2 % (37-47); Hemoglobin 13.1 g/dL (12.0-16.0); Immature Granulocytes # (auto) 0.05 K/uL (0.00-0.02); Immature Granulocytes % (auto) 0.3 %; Lymphocytes # (auto) 1.21 K/uL (1.2-3.4); Lymphocytes % (auto) 7.9 %; Mean Corpuscular Hemoglobin 28.9 pg (25-34); Mean Corpuscular Hgb Conc 33.4 g/dL (32-36); Mean Corpuscular Volume 86.5 fL (80-100); Mean Platelet Volume 10.5 fL (7.4-10.4); Monocytes # (auto) 1.15 K/uL (0.11-0.59); Monocytes % (auto) 7.5 %; Neutrophils # (auto) 12.98 K/uL (1.4-6.5); Neutrophils % (auto) 84.2 %; Platelet Count 228 K/uL (130-400); RDW Coefficient of Variation 14.4 % (11.5-14.5); RDW Standard Deviation 44.8 fL (36.4-46.3); Red Blood Count 4.53 M/uL (4.2-5.4)
[2019-06-25 00:10] LABS: Alanine Aminotransferase 60 U/L (12-78); Albumin Level 2.9 gm/dl (3.4-5.0); Aspartate Aminotransferase 217 U/L (15-37); BUN Creatinine Ratio 25.7 (10-20); Blood Urea Nitrogen 56 mg/dl (7-18); Calcium 8.3 mg/dl (8.5-10.1); Carbon Dioxide 21 mmol/L (21-32); Chloride 103 mmol/L (98-107); Creatinine Clr Calc Pharmacy 24.2 ml/min; Est GFR (African American) 23.2; Glucose 164 mg/dl (70-99); Magnesium 2.7 mg/dl (1.8-2.4); Potassium 4.8 mmol/L (3.5-5.1); Sodium 136 mmol/L (136-145)
[2019-06-25 00:12] LABS: INR 2.8 (0.9-1.1); Partial Thromboplastin Ratio 1.5; Partial Thromboplastin Time 40.2 Seconds (21.0-31.0); Prothrombin Time 26.4 Seconds (9.0-12.0)
[2019-06-25 00:53] LABS: Albumin Globulin Ratio 0.5 (0.9-2); Alkaline Phosphatase 127 U/L (45-117); Bilirubin,Total 0.6 mg/dl (0.2-1); Creatine Kinase 7754 U/L (26-192); Globulin 5.3 gm/dl (2.5-4.0); Total Protein 8.2 gm/dl (6.4-8.2); Troponin I < 0.015 ng/ml (0-0.045)
[2019-06-25] MEDS ORDERED: VANCOMYCIN HCL 2,250 MG in SODIUM CHLORIDE 0.9% 500 ML IV ONE (00:59)
[2019-06-25] MEDS ORDERED: VANCOMYCIN CONSULT ACTIVE ONE (00:59)
[2019-06-25] MEDS ORDERED: CEFEPIME 2,000 MG/20 ML VIAL IV STA (00:59)
[2019-06-25] MEDS ORDERED: VANCOMYCIN CONSULT ACTIVE PRN (00:59)
[2019-06-25 01:24] LABS: Appearance Urine Turbid (Clear); Bacteria Urine Automated 4+ (Negative); Bilirubin Urine Negative (Negative); Blood Urine 3+ (Negative); Color Urine Yellow; Epithelial Cell Urine Auto 0-5 /lpf (0-5); Glucose Urine UA Negative (Negative); Ketones Urine Negative (Negative); Leukocyte Esterase Urine 2+ (Negative); Nitrite Urine Negative (Negative); Protein Urine 2+ (Negative); Urobilinogen Urine Negative (Negative); WBC Urine Automated >30 /hpf (0-5)
[2019-06-25] MEDS ORDERED: PIPERACILLIN/TAZOBACTAM 4.5 GM/120 ML BAG IV ONE (02:13)
[2019-06-25] MEDS ORDERED: PIPERACILL/TAZOBAC CONSULT ACTIVE PRN (02:13)
[2019-06-25] MEDS ORDERED: SODIUM CHLORIDE 0.9% 1000ML 1,000 ML IV ONE (02:36)
--- NOTE | 2019-06-25 03:00 | History & Physical Report ---
Date of Service June 25, 2019 Assessment & Plan (1) Severe sepsis: SIRS plus ARF on CRI Potential sources : Complicated UTI (hx 'silent' UTIs in the past as per patient daughter) Endocarditis, hx SSS sp PPM, hx aortic stenosis status post TAVR (11/2017), Traumatic rhabdomyolysis SSS sp PPM/hx PE on Coumadin, paced rhythm INR therapeutic hypertension, stable hyperthyroidism, stable recent outpatient TSH on current Rx breast cancer right status post surgery/radiation DM 2 on oral medications, well-controlled as of recent hemoglobin A1c of 6.29 October 2018 chronic anemia, hemoglobin better than baseline likely secondary to hemoconcentration Medical telemetry Cultures, IV Vancomycin, Cefepime IVF, follow CPK, follow renal function Hold home diuretics until creatinine to baseline ISS BG goal 1 40-1 80, may need basal insulin to attain goal, update hemoglobin A1c PT OT eval DVT prophylaxis. Coumadin INR goal between 2 and 3 Full code Patient's daughter requesting updates from providers. Ms. Sofia Yoo, contact #[phone]. History of Present Illness Chief Complaint: Fall Primary Care Provider: Kayla Martinez PA-C History obtained from patient, family, and records. Medical history significant for SSS sp PPM/hx PE on Coumadin, aortic stenosis status post TAVR (11/2017), hypertension, hyperlipidemia, breast cancer right status post surgery/radiation, hyperthyroidism, DM 2 on oral medications, CRI (baseline creatinine 1.1-1.3) chronic anemia baseline hemoglobin of 11 Recent confinement January 2018 under Cardiology service for SSS sp PPM. Last 2 days at home patient noted to be falling, just feeling weak as per daughter. Patient fell on the ground while going to the bathroom yesterday morning. Unable to get up. Life alert device would not work. Family checked on patient after patient's sister got worried about patient not calling her yesterday afternoon. Patient found on the floor. Denies chest pain, shortness of breath, cough, abdominal pain, diarrhea, dysuria. Patient received Vancomycin and Cefepime for sepsis at the ER. Medical History as above Surgical History : TAVR, PPM knee surgery, mastectomy, lymphadenectomy, knee surgery, Family History : Breast cancer, colon cancer, heart disease, diabetes, alcohol abuse Personal/Social history : Non-smoker, no EtOH intake, retired cook Allergies Allergy/AdvReac Type Severity Reaction Status Date / Time Cipro Allergy Intermediate RASH? Verified 01/29/18 06:42 ciprofloxacin Allergy Intermediate RASH? Verified 06/25/19 00:21 ropinirole AdvReac Intermediate COUGH,N&V Verified 06/25/19 00:21 atorvastatin AdvReac Mild LEG CRAMPS Verified 06/25/19 00:21 Home Medications Home Medications Medication Instructions Recorded Confirmed Type Tylenol Pain Relief 1 - 2 tab PO DIRECTED 06/25/19 06/25/19 History aspirin 325 mg PO DAILY 06/25/19 06/25/19 History biotin 1,000 mcg PO DAILY 06/25/19 06/25/19 History [id number] [Sinus 2 tab PO Q6H PRN 06/25/19 06/25/19 History Congestion-Pain(chlorph)] fluoxetine 10 mg PO DAILY 06/25/19 06/25/19 History furosemide [Lasix] 20 mg PO DAILY 06/25/19 06/25/19 History glipizide 2.5 mg PO DAILY 06/25/19 06/25/19 History hydrocortisone 1 applic TOPICAL BID PRN 06/25/19 06/25/19 History ibuprofen 200 mg PO Q6H PRN 06/25/19 06/25/19 History iron,carbonyl-vitamin C [Vitron-C] 1 tab PO DIRECTED 06/25/19 06/25/19 History lisinopril 10 mg PO BID 06/25/19 06/25/19 History loratadine 10 mg PO DAILY PRN 06/25/19 06/25/19 History meclizine 12.5 mg PO DIRECTED PRN 06/25/19 06/25/19 History methimazole [Tapazole] 5 mg PO DAILY 06/25/19 06/25/19 History metoprolol succinate [Toprol XL] 50 mg PO DAILY 06/25/19 06/25/19 History naproxen sodium [Aleve] 220 mg PO Q8H PRN 06/25/19 06/25/19 History oxybutynin chloride [Ditropan XL] 10 mg PO DAILY 06/25/19 06/25/19 History potassium chloride 10 meq PO DAILY 06/25/19 06/25/19 History rosuvastatin [Crestor] 10 mg PO DAILY 06/25/19 06/25/19 History vitamin E 1 applic TOPICAL BID PRN 06/25/19 06/25/19 History vitamin E 1,000 unit PO DAILY 06/25/19 06/25/19 History warfarin [Coumadin] 2.5 mg PO 2XWK 06/25/19 06/25/19 History warfarin [Coumadin] 5 mg PO 5XWK 06/25/19 06/25/19 History Past Med/Surg History Family History Other No chronic problems Social History Preferred Language: [place] Communication Ability: Effective Hot Bread Baker Required: No Beliefs That Will Affect Care: None Current Living Situation: Alone Other Information That Helps Us Care for You: No Feels Safe at Home: Yes Safety Concerns: Feels Safe At This Time Smoking Status: Never smoker Hx Alcohol Use: No Hx Substance Use: No Review of Systems Review of Systems: As per HPI, all 10 systems reviewed, all other ROS negative Physical Exam Physical Exam: GENERAL: Comfortable, obese, slightly hard of hearing, no respiratory distress, looks younger than stated age SKIN: Pallor , warm HEENT: Pale palpebral conjunctivae, no ptosis, dry buccal mucosa NECK : Supple, short neck, no tenderness CHEST : CTA, no tenderness HEART : RRR, systolic murmur ABDOMEN: distention, nontender EXTREMITIES : Minimal LE swelling, no LE tenderness, no other conspicuous deformities noted NEUROLOGIC : Coherent, no facial asymmetry, no other gross focality Results & Data Vital Signs (Past 12 Hours) Vital Signs Temp Pulse Pulse Resp BP BP Pulse Ox 06/25/19 02:30 60 20 128/63 100 06/25/19 02:00 62 20 127/65 100 06/25/19 01:30 37.8 C H 60 20 121/64 100 06/25/19 01:13 60 20 134/63 100 06/25/19 01:00 60 22 126/64 98 06/25/19 00:00 70 20 155/89 H 99 06/24/19 23:56 100 06/24/19 23:33 39.8 C H 80 22 173/85 H 99 Laboratory Results Laboratory Results WBC 15.40 K/uL (4.8-10.8) H 06/24/19 22:50 RBC 4.53 M/uL (4.2-5.4) 06/24/19 22:50 Hgb 13.1 g/dL (12.0-16.0) 06/24/19 22:50 Hct 39.2 % (37-47) 06/24/19 22:50 MCV 86.5 fL (80-100) 06/24/19 22:50 MCH 28.9 pg (25-34) 06/24/19 22:50 MCHC 33.4 g/dL (32-36) 06/24/19 22:50 RDW Std Deviation 44.8 fL (36.4-46.3) 06/24/19 22:50 RDW Coeff of Jerry 14.4 % (11.5-14.5) 06/24/19 22:50 Plt Count 228 K/uL (130-400) 06/24/19 22:50 MPV 10.5 fL (7.4-10.4) H 06/24/19 22:50 Immature Gran % (Auto) 0.3 % 06/24/19 22:50 Neut % (Auto) 84.2 % 06/24/19 22:50 Lymph % (Auto) 7.9 % 06/24/19 22:50 [place] % (Auto) 7.5 % 06/24/19 22:50 Eos % (Auto) 0.0 % 06/24/19 22:50 Baso % (Auto) 0.1 % 06/24/19 22:50 Immature Gran # (Auto) 0.05 K/uL (0.00-0.02) H 06/24/19 22:50 Neut # (Auto) 12.98 K/uL (1.4-6.5) H 06/24/19 22:50 Lymph # (Auto) 1.21 K/uL (1.2-3.4) 06/24/19 22:50 [place] # (Auto) 1.15 K/uL (0.11-0.59) H 06/24/19 22:50 Eos # (Auto) 0.00 K/uL (0-0.5) 06/24/19 22:50 Baso # (Auto) 0.01 K/uL (0-0.2) 06/24/19 22:50 PT 26.4 Seconds (9.0-12.0) H 06/24/19 22:50 INR 2.8 (0.9-1.1) H 06/24/19 22:50 APTT 40.2 Seconds (21.0-31.0) H 06/24/19 22:50 PTT Ratio 1.5 06/24/19 22:50 Sodium 136 mmol/L (136-145) 06/24/19 22:50 Potassium 4.8 mmol/L (3.5-5.1) 06/24/19 22:50 Chloride 103 mmol/L (98-107) 06/24/19 22:50 Carbon Dioxide 21 mmol/L (21-32) 06/24/19 22:50 Anion Gap 12.0 (3-11) H 06/24/19 22:50 BUN 56 mg/dl (7-18) H 06/24/19 22:50 Creatinine 2.17 mg/dl (0.6-1.2) H 06/24/19 22:50 Est Cr Clr Drug Dosing 24.2 ml/min 06/24/19 22:50 Est GFR ( Amer) 23.2 06/24/19 22:50 Est GFR (Non-Af Amer) 20.0 06/24/19 22:50 BUN/Creatinine Ratio 25.7 (10-20) H 06/24/19 22:50 Glucose 164 mg/dl (70-99) H 06/24/19 22:50 POC Lactic Acid Ben 1.63 mmol/L (0.90-1.70) 06/25/19 00:05 Calcium 8.3 mg/dl (8.5-10.1) L 06/24/19 22:50 Magnesium 2.7 mg/dl (1.8-2.4) H 06/24/19 22:50 Total Bilirubin 0.6 mg/dl (0.2-1) 06/24/19 22:50 AST 217 U/L (15-37) H 06/24/19 22:50 ALT 60 U/L (12-78) 06/24/19 22:50 Alkaline Phosphatase 127 U/L (45-117) H 06/24/19 22:50 Total Creatine Kinase 7754 U/L (26-192) H 06/24/19 22:50 Troponin I < 0.015 ng/ml (0-0.045) 06/24/19 22:50 Total Protein 8.2 gm/dl (6.4-8.2) 06/24/19 22:50 Albumin 2.9 gm/dl (3.4-5.0) L 06/24/19 22:50 Globulin 5.3 gm/dl (2.5-4.0) H 06/24/19 22:50 Albumin/Globulin Ratio 0.5 (0.9-2) L 06/24/19 22:50 Procalcitonin 15.39 ng/ml (0-0.5) H 06/24/19 22:50 Urine Color Yellow 06/25/19 00:35 Urine Appearance Turbid (Clear) A 06/25/19 00:35 Urine pH 5.0 (4.5-7.5) 06/25/19 00:35 Ur Specific [place] 1.020 (1.000-1.030) 06/25/19 00:35 Urine Protein 2+ (Negative) H 06/25/19 00:35 Urine Glucose (UA) Negative (Negative) 06/25/19 00:35 Urine Ketones Negative (Negative) 06/25/19 00:35 Urine Blood 3+ (Negative) H 06/25/19 00:35 Urine Nitrite Negative (Negative) 06/25/19 00:35 Urine Bilirubin Negative (Negative) 06/25/19 00:35 Urine Urobilinogen Negative (Negative) 06/25/19 00:35 Ur Leukocyte Esterase 2+ (Negative) H 06/25/19 00:35 Urine WBC (Auto) >30 /hpf (0-5) H 06/25/19 00:35 Urine RBC (Auto) 5-10 /hpf (0-4) H 06/25/19 00:35 U Hyaline Cast (Auto) 1-5 /lpf (0-5) 06/25/19 00:35 U Epithel Cells (Auto) 0-5 /lpf (0-5) 06/25/19 00:35 Urine Bacteria (Auto) 4+ (Negative) H 06/25/19 00:35 Granular Casts 5-10 /lpf (0) H 06/25/19 00:35 Urine Yeast Not Reportable 06/25/19 00:35 Influenza Type A Ag Neg for Influ A (Neg) 06/25/19 00:00 Influenza Type B Ag Neg for Influ B (Neg) 06/25/19 00:00 Diagnostic Findings Chest x-ray as per my interpretation cardiomegaly, no congestion; PPM EKG as per my interpretation : Rate 80, paced rhythm CT head initial read: No intracranial hemorrhage/skull fracture. Involutional changes. Cataract surgery. CT cervical spine initial read: No acute fracture/or malalignment. Large thyroid gland. PPM. Degenerative changes CT lumbar spine initial read: No acute fracture/misalignment. Surgical changes with intact hardware. Osteopenia. Degenerative changes.
[2019-06-25] MEDS ORDERED: HYDROmorphone INJ 0.5 MG/0.5 ML SYR IV PRN (03:50)
[2019-06-25] MEDS ORDERED: SODIUM CHLORIDE 0.9% 1000ML 1,000 ML IV SCH (03:50)
[2019-06-25] MEDS ORDERED: PROMETHAZINE HCL 12.5 MG in SODIUM CHLORIDE 0.9% 50 ML IV PRN (03:50)
[2019-06-25] MEDS ORDERED: NITROGLYCERIN SL 0.4 MG/TAB TAB SL PRN (03:50)
[2019-06-25] MEDS ORDERED: LORATADINE 10 MG TAB PO PRN (03:50)
--- NOTE | 2019-06-25 04:38 | Emergency Department Note ---
Entered by Sebastien Titus acting as a scribe for History of Present Illness General Chief complaint: Fall Time Seen by Provider: 06/24/19 23:35 Source: patient History of Present Illness Onset (ago): day(s) (today at 1200) Location: back (lower) Pain Consistency: + constant Maximum Pain Intensity: 8 Associated symptoms: + other (Positive for weakness, productive clear cough, chills, nausea, a subjective fever, and an episode of loose stool. Negative for SOB, CP, abdominal pain, vomiting, bloody stool, melena.) The patient is an 88 year old female who presents to the emergency department with complaints of lower back pain following a fall occurring today at 1200. The patient states that she fell around 1200 today when she was going to the bathroom. She notes that she has been feeling weak for the last three days, making going to the bathroom difficult. Patient states she was using her cane. States she slowly fell to the ground. She reports that she laid on the ground for about 10 hours today until her family found her, as she was not able to get up off the ground by herself. She also complains of a productive clear cough, chills, nausea, and a subjective fever for the last 3 days. The patient states that she had an episode of loose stool a few days ago. She denies any SOB, CP, abdominal pain, vomiting, bloody stool, melena, and known sick contacts. Patient does live alone. No recent change in medications. Home Medications Home Medications Medication Instructions Recorded Confirmed Type Tylenol Pain Relief 1 - 2 tab PO DIRECTED 06/25/19 06/25/19 History aspirin 325 mg PO DAILY 06/25/19 06/25/19 History biotin 1,000 mcg PO DAILY 06/25/19 06/25/19 History eoe-zbsyrulrh-[id number] [Sinus 2 tab PO Q6H PRN 06/25/19 06/25/19 History Congestion-Pain(chlorph)] fluoxetine 10 mg PO DAILY 06/25/19 06/25/19 History furosemide [Lasix] 20 mg PO DAILY 06/25/19 06/25/19 History glipizide 2.5 mg PO DAILY 06/25/19 06/25/19 History hydrocortisone 1 applic TOPICAL BID PRN 06/25/19 06/25/19 History ibuprofen 200 mg PO Q6H PRN 06/25/19 06/25/19 History iron,carbonyl-vitamin C [Vitron-C] 1 tab PO DIRECTED 06/25/19 06/25/19 History lisinopril 10 mg PO BID 06/25/19 06/25/19 History loratadine 10 mg PO DAILY PRN 06/25/19 06/25/19 History meclizine 12.5 mg PO DIRECTED PRN 06/25/19 06/25/19 History methimazole [Tapazole] 5 mg PO DAILY 06/25/19 06/25/19 History metoprolol succinate [Toprol XL] 50 mg PO DAILY 06/25/19 06/25/19 History naproxen sodium [Aleve] 220 mg PO Q8H PRN 06/25/19 06/25/19 History oxybutynin chloride [Ditropan XL] 10 mg PO DAILY 06/25/19 06/25/19 History potassium chloride 10 meq PO DAILY 06/25/19 06/25/19 History rosuvastatin [Crestor] 10 mg PO DAILY 06/25/19 06/25/19 History vitamin E 1 applic TOPICAL BID PRN 06/25/19 06/25/19 History vitamin E 1,000 unit PO DAILY 06/25/19 06/25/19 History warfarin [Coumadin] 2.5 mg PO 2XWK 06/25/19 06/25/19 History warfarin [Coumadin] 5 mg PO 5XWK 06/25/19 06/25/19 History Allergies Allergy/AdvReac Type Severity Reaction Status Date / Time Cipro Allergy Intermediate RASH? Verified 01/29/18 06:42 ciprofloxacin Allergy Intermediate RASH? Verified 06/25/19 00:21 ropinirole AdvReac Intermediate COUGH,N&V Verified 06/25/19 00:21 atorvastatin AdvReac Mild LEG CRAMPS Verified 06/25/19 00:21 Past Med/Surg History Family History Other No chronic problems Social History Preferred Language: Belgian Communication Ability: Effective Audiologist Required: No Beliefs That Will Affect Care: None Current Living Situation: Alone Other Information That Helps Us Care for You: No Feels Safe at Home: Yes Safety Concerns: Feels Safe At This Time Smoking Status: Never smoker Hx Alcohol Use: No Hx Substance Use: No Review of Systems See HPI for pertinent positives & negatives. and A total of 10 systems reviewed and were otherwise negative Physical Exam Vital Signs Vital Signs - 24 hr 06/24/19 23:33 06/24/19 23:56 06/25/19 00:00 Temperature 39.8 C H Temperature Source Oral Sepsis Recent Fever Within 48 Hours Yes Sepsis Action Taken by Nursing Physician Notified Pulse Rate 80 Pulse Rate [Finger] 70 Respiratory Rate 22 20 Respiratory Effort / Characteristics Non-Labored Spontaneous Respiratory Depth Normal Blood Pressure 173/85 H Blood Pressure [Left Arm] 155/89 H Blood Pressure Mean 114 Blood Pressure Mean [Left Arm] 111 Pulse Oximetry 99 100 99 Oxygen Delivery Method Room Air Room Air Room Air 06/25/19 01:00 06/25/19 01:13 06/25/19 01:30 Temperature 37.8 C H Temperature Source Oral Sepsis Recent Fever Within 48 Hours Sepsis Action Taken by Nursing Pulse Rate Pulse Rate [Finger] 60 60 60 Respiratory Rate 22 20 20 Respiratory Effort / Characteristics Respiratory Depth Blood Pressure Blood Pressure [Left Arm] 126/64 134/63 121/64 Blood Pressure Mean Blood Pressure Mean [Left Arm] 84 86 83 Pulse Oximetry 98 100 100 Oxygen Delivery Method Room Air Room Air Room Air 06/25/19 02:00 06/25/19 02:30 06/25/19 03:00 Temperature Temperature Source Sepsis Recent Fever Within 48 Hours Sepsis Action Taken by Nursing Pulse Rate Pulse Rate [Finger] 62 60 60 Respiratory Rate 20 20 20 Respiratory Effort / Characteristics Non-Labored Spontaneous Respiratory Depth Normal Blood Pressure Blood Pressure [Left Arm] 127/65 128/63 122/61 Blood Pressure Mean Blood Pressure Mean [Left Arm] 85 84 81 Pulse Oximetry 100 100 100 Oxygen Delivery Method Room Air Room Air Room Air GENERAL: alert, well appearing, well nourished, no distress, non-toxic HEAD: normal cephalic, atraumatic, no carter sign, no raccoon eyes EYE EXAM: normal conjunctiva, PERRL and EOM's grossly intact OROPHARYNX: no exudate, no erythema, lips, buccal mucosa, and tongue normal and mucous membranes are dry EARS: TMs clear b/l without hemotympanum, no edema along the canals NECK: supple, no nuchal rigidity, no adenopathy, non-tender CHEST: stable to compression anteriorly and posteriorly, 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 LUNGS: clear to auscultation. Normal chest wall mechanics, no w/r/r HEART: no murmurs, S1 normal and S2 normal ABDOMEN: abdomen soft, non-tender, normo-active bowel sounds, no masses, no rebound or guarding. PELVIS: stable to compression anteriorly and posteriorly BACK: Back is symmetrical on inspection and there is no deformity, no midline tenderness, no CVA tenderness. UPPER EXTREMITIES: full active and passive range of motion of all joints without tenderness to palpation, no obvious deformities or trauma. LOWER EXTREMITIES: full active and passive range of motion of all joints without tenderness to palpation, well healed vertical incision over knees bilaterally consistent with knee replacement, mild cyanosis noted to bilateral toes, decreased dorsalis pedis pulse on left compared to right, posterior tibialis equal, no obvious deformities or trauma. NEURO EXAM: Normal sensorium, cranial nerves II-XII grossly intact, normal speech, no gross weakness of arms, no gross weakness of legs. GCS: 15. Course 2339: The patient was evaluated in room B12. A complete history and physical exam was performed. 0100: I reevaluated and updated the patient. Vital signs stable. Family now at bedside. 0140: Upon reevaluation, the patient is stable. I discussed the findings and the treatment plan with the patient. She expresses agreement and understanding. I spoke with Dr. Shelton of the [facility]. The patient will be evaluated for further management. 0217: I reevaluated and updated the patient. Vital signs stable. IV fluids and IV antibiotic still infusing. Consultations Consultation #1: I [facility] the [facility] He will evaluate the patient for further management. Time: 01:40 Administered Medications Sodium Chloride (Nss 1000ml) 1,000 mls @ 100 mls/hr IV .Q10H ORLY Stop: 06/26/19 03:49 Last Admin: 06/25/19 04:42 Dose: 100 mls/hr Documented by: [id number] Discontinued Medications Acetaminophen (Ofirmev) 1,000 mg in 100 mls @ 400 mls/hr IV NOW STA Stop: 06/25/19 00:04 Last Infusion: 06/25/19 00:25 Dose: 0 mls/hr Documented by: [id number] Admin: 06/25/19 00:06 Dose: 400 mls/hr Documented by: [id number] Sodium Chloride (Nss 1000ml) 1,000 mls @ 999 mls/hr IV .Q1H1M ORLY Stop: 06/25/19 00:45 Last Infusion: 06/25/19 01:10 Dose: 0 mls/hr Documented by: [id number] Admin: 06/25/19 00:06 Dose: 999 mls/hr Documented by: [id number] Cefepime HCl (Maxipime) 2,000 mg in 20 mls @ 5 mls/min IV NOW STA; Protocol Stop: 06/25/19 01:02 Last Admin: 06/25/19 01:08 Dose: 5 mls/min Documented by: [id number] Vancomycin HCl 2,250 mg/ (Sodium Chloride) 545 mls @ 200 mls/hr IV NOW ONE Stop: 06/25/19 03:42 Last Infusion: 06/25/19 04:41 Dose: 0 mls/hr Documented by: [id number] Admin: 06/25/19 01:22 Dose: 200 mls/hr Documented by: [id number] Piperacillin Sod/Tazobactam Sod (Zosyn) 4.5 gm in 120 mls @ 240 mls/hr IV NOW ONE Stop: 06/25/19 02:42 Last Admin: 06/25/19 03:06 Dose: Not Given Documented by: [id number] Sodium Chloride (Nss 1000ml) 1,000 mls @ 999 mls/hr IV .Q1H1M ONE Stop: 06/25/19 03:36 Last Infusion: 06/25/19 03:44 Dose: 0 mls/hr Documented by: [id number] Admin: 06/25/19 02:55 Dose: 999 mls/hr Documented by: [id number] Miscellaneous Information (Consult) 1 ea N/A UD ONE Stop: 06/25/19 01:00 Last Admin: 06/25/19 01:30 Dose: Not Given Documented by: [id number] Medical Decision Making Differential Diagnosis Differential diagnoses include major intracranial, cervical, spinal, thoracic, abdominal, pelvic and neurologic injury. Fracture, contusion, sprain, strain, laceration, abrasions included as well. Medical Records Attestation: I reviewed the patient's medical records. Home Medications Current Medication List: was personally reviewed by me Laboratory Data Attestation: I reviewed the patient's lab results. Result diagrams: 06/24/19 22:50 06/24/19 22:50 Lab Results 06/24/19 06/24/19 06/24/19 Range/Units 22:50 22:50 22:50 WBC 15.40 H (4.8-10.8) K/uL RBC 4.53 (4.2-5.4) M/uL Hgb 13.1 (12.0-16.0) g/dL Hct 39.2 (37-47) % MCV 86.5 (80-100) fL MCH 28.9 (25-34) pg MCHC 33.4 (32-36) g/dL RDW Std Deviation 44.8 (36.4-46.3) fL RDW Coeff of Jerry 14.4 (11.5-14.5) % Plt Count 228 (130-400) K/uL MPV 10.5 H (7.4-10.4) fL Immature Gran % (Auto) 0.3 % Neut % (Auto) 84.2 % Lymph % (Auto) 7.9 % Valencia % (Auto) 7.5 % Eos % (Auto) 0.0 % Baso % (Auto) 0.1 % Immature Gran # (Auto) 0.05 H (0.00-0.02) K/uL Neut # (Auto) 12.98 H (1.4-6.5) K/uL Lymph # (Auto) 1.21 (1.2-3.4) K/uL Valencia # (Auto) 1.15 H (0.11-0.59) K/uL Eos # (Auto) 0.00 (0-0.5) K/uL Baso # (Auto) 0.01 (0-0.2) K/uL PT 26.4 H (9.0-12.0) Seconds INR 2.8 H (0.9-1.1) APTT 40.2 H (21.0-31.0) Seconds PTT Ratio 1.5 Sodium 136 (136-145) mmol/L Potassium 4.8 (3.5-5.1) mmol/L Chloride 103 (98-107) mmol/L Carbon Dioxide 21 (21-32) mmol/L Anion Gap 12.0 H (3-11) BUN 56 H (7-18) mg/dl Creatinine 2.17 H (0.6-1.2) mg/dl Est Cr Clr Drug Dosing 24.2 ml/min Est GFR ( Amer) 23.2 Est GFR (Non-Af Amer) 20.0 BUN/Creatinine Ratio 25.7 H (10-20) Glucose 164 H (70-99) mg/dl POC Lactic Acid Ben (0.90-1.70) mmol/L Calcium 8.3 L (8.5-10.1) mg/dl Magnesium 2.7 H (1.8-2.4) mg/dl Total Bilirubin 0.6 (0.2-1) mg/dl AST 217 H (15-37) U/L ALT 60 (12-78) U/L Alkaline Phosphatase 127 H (45-117) U/L Total Creatine Kinase 7754 H (26-192) U/L Troponin I < 0.015 (0-0.045) ng/ml Total Protein 8.2 (6.4-8.2) gm/dl Albumin 2.9 L (3.4-5.0) gm/dl Globulin 5.3 H (2.5-4.0) gm/dl Albumin/Globulin Ratio 0.5 L (0.9-2) Procalcitonin (0-0.5) ng/ml Urine Color Urine Appearance (Clear) Urine pH (4.5-7.5) Ur Specific Commerce (1.000-1.030) Urine Protein (Negative) Urine Glucose (UA) (Negative) Urine Ketones (Negative) Urine Blood (Negative) Urine Nitrite (Negative) Urine Bilirubin (Negative) Urine Urobilinogen (Negative) Ur Leukocyte Esterase (Negative) Urine WBC (Auto) (0-5) /hpf Urine RBC (Auto) (0-4) /hpf U Hyaline Cast (Auto) (0-5) /lpf U Epithel Cells (Auto) (0-5) /lpf Urine Bacteria (Auto) (Negative) Granular Casts (0) /lpf Urine Yeast Influenza Type A Ag (Neg) Influenza Type B Ag (Neg) 06/24/19 06/25/19 06/25/19 Range/Units 22:50 00:00 00:05 WBC (4.8-10.8) K/uL RBC (4.2-5.4) M/uL Hgb (12.0-16.0) g/dL Hct (37-47) % MCV (80-100) fL MCH (25-34) pg MCHC (32-36) g/dL RDW Std Deviation (36.4-46.3) fL RDW Coeff of Jerry (11.5-14.5) % Plt Count (130-400) K/uL MPV (7.4-10.4) fL Immature Gran % (Auto) % Neut % (Auto) % Lymph % (Auto) % Valencia % (Auto) % Eos % (Auto) % Baso % (Auto) % Immature Gran # (Auto) (0.00-0.02) K/uL Neut # (Auto) (1.4-6.5) K/uL Lymph # (Auto) (1.2-3.4) K/uL Valencia # (Auto) (0.11-0.59) K/uL Eos # (Auto) (0-0.5) K/uL Baso # (Auto) (0-0.2) K/uL PT (9.0-12.0) Seconds INR (0.9-1.1) APTT (21.0-31.0) Seconds PTT Ratio Sodium (136-145) mmol/L Potassium (3.5-5.1) mmol/L Chloride (98-107) mmol/L Carbon Dioxide (21-32) mmol/L Anion Gap (3-11) BUN (7-18) mg/dl Creatinine (0.6-1.2) mg/dl Est Cr Clr Drug Dosing ml/min Est GFR ( Amer) Est GFR (Non-Af Amer) BUN/Creatinine Ratio (10-20) Glucose (70-99) mg/dl POC Lactic Acid Ben 1.63 (0.90-1.70) mmol/L Calcium (8.5-10.1) mg/dl Magnesium (1.8-2.4) mg/dl Total Bilirubin (0.2-1) mg/dl AST (15-37) U/L ALT (12-78) U/L Alkaline Phosphatase (45-117) U/L Total Creatine Kinase (26-192) U/L Troponin I (0-0.045) ng/ml Total Protein (6.4-8.2) gm/dl Albumin (3.4-5.0) gm/dl Globulin (2.5-4.0) gm/dl Albumin/Globulin Ratio (0.9-2) Procalcitonin 15.39 H (0-0.5) ng/ml Urine Color Urine Appearance (Clear) Urine pH (4.5-7.5) Ur Specific Commerce (1.000-1.030) Urine Protein (Negative) Urine Glucose (UA) (Negative) Urine Ketones (Negative) Urine Blood (Negative) Urine Nitrite (Negative) Urine Bilirubin (Negative) Urine Urobilinogen (Negative) Ur Leukocyte Esterase (Negative) Urine WBC (Auto) (0-5) /hpf Urine RBC (Auto) (0-4) /hpf U Hyaline Cast (Auto) (0-5) /lpf U Epithel Cells (Auto) (0-5) /lpf Urine Bacteria (Auto) (Negative) Granular Casts (0) /lpf Urine Yeast Influenza Type A Ag Neg for Influ A (Neg) Influenza Type B Ag Neg for Influ B (Neg) 06/25/19 Range/Units 00:35 WBC (4.8-10.8) K/uL RBC (4.2-5.4) M/uL Hgb (12.0-16.0) g/dL Hct (37-47) % MCV (80-100) fL MCH (25-34) pg MCHC (32-36) g/dL RDW Std Deviation (36.4-46.3) fL RDW Coeff of Jerry (11.5-14.5) % Plt Count (130-400) K/uL MPV (7.4-10.4) fL Immature Gran % (Auto) % Neut % (Auto) % Lymph % (Auto) % Valencia % (Auto) % Eos % (Auto) % Baso % (Auto) % Immature Gran # (Auto) (0.00-0.02) K/uL Neut # (Auto) (1.4-6.5) K/uL Lymph # (Auto) (1.2-3.4) K/uL Valencia # (Auto) (0.11-0.59) K/uL Eos # (Auto) (0-0.5) K/uL Baso # (Auto) (0-0.2) K/uL PT (9.0-12.0) Seconds INR (0.9-1.1) APTT (21.0-31.0) Seconds PTT Ratio Sodium (136-145) mmol/L Potassium (3.5-5.1) mmol/L Chloride (98-107) mmol/L Carbon Dioxide (21-32) mmol/L Anion Gap (3-11) BUN (7-18) mg/dl Creatinine (0.6-1.2) mg/dl Est Cr Clr Drug Dosing ml/min Est GFR ( Amer) Est GFR (Non-Af Amer) BUN/Creatinine Ratio (10-20) Glucose (70-99) mg/dl POC Lactic Acid Ben (0.90-1.70) mmol/L Calcium (8.5-10.1) mg/dl Magnesium (1.8-2.4) mg/dl Total Bilirubin (0.2-1) mg/dl AST (15-37) U/L ALT (12-78) U/L Alkaline Phosphatase (45-117) U/L Total Creatine Kinase (26-192) U/L Troponin I (0-0.045) ng/ml Total Protein (6.4-8.2) gm/dl Albumin (3.4-5.0) gm/dl Globulin (2.5-4.0) gm/dl Albumin/Globulin Ratio (0.9-2) Procalcitonin (0-0.5) ng/ml Urine Color Yellow Urine Appearance Turbid A (Clear) Urine pH 5.0 (4.5-7.5) Ur Specific Commerce 1.020 (1.000-1.030) Urine Protein 2+ H (Negative) Urine Glucose (UA) Negative (Negative) Urine Ketones Negative (Negative) Urine Blood 3+ H (Negative) Urine Nitrite Negative (Negative) Urine Bilirubin Negative (Negative) Urine Urobilinogen Negative (Negative) Ur Leukocyte Esterase 2+ H (Negative) Urine WBC (Auto) >30 H (0-5) /hpf Urine RBC (Auto) 5-10 H (0-4) /hpf U Hyaline Cast (Auto) 1-5 (0-5) /lpf U Epithel Cells (Auto) 0-5 (0-5) /lpf Urine Bacteria (Auto) 4+ H (Negative) Granular Casts 5-10 H (0) /lpf Urine Yeast Not Reportable Influenza Type A Ag (Neg) Influenza Type B Ag (Neg) Imaging Data My Impression: SINGLE VIEW CHEST X-RAY: Mild cardiomegaly. Pacemaker noted. No effusions. No focal consolidation. No acute pulmonary edema. Patient rotated. No wide mediastinum. SINGLE VIEW PELVIS X-RAY: No acute fracture or dislocation. Lumbar hardware noted. Radiologist's Impression: Radiology results as stated below per my review and the radiologist's interpretation: CT HEAD: No intracranial hemorrhage or skull fracture. Involutional changes with small vessel disease. Cataract surgery. Radiologist: Denise Thompson MD. CT C SPINE: No acute fracture or malalignment. Degenerative changes. Large thyroid gland. Pacemaker. Radiologist: Denise Thompson MD. CT L SPINE: No acute fracture or malalignment. Surgical changes with intact hardware. Degenerative changes. Osteopenia. Radiologist: Denise Thompson MD. ECG Data Attestation: I personally reviewed and interpreted this ECG as follows: Indication: weakness Rate (beats per minute): 77 Rhythm: other (paced) Findings: no acute ischemic change Additional Comments: Prolonged NE consistent with atrial pacing, normal QRS and QTC. Blood Pressure Blood Pressure Findings: Elevated blood pressure Blood Pressure Disposition: further management by hospitalist Head Trauma GCS Score: 15 MDM Narrative Patient here mildly ill-appearing on presentation and concern for not only an initial trauma, however precipitating symptoms which may have put patient at risk for fall. Patient found to have leukocytosis, elevated procalcitonin level, however normal lactic acid. Patient was febrile on arrival here, however this improved with Tylenol. Patient was started on IV fluids, and remained hemodynamically stable throughout. Patient started on vancomycin and cefepime as a precaution. No overt physical evidence of trauma on exam. As a precaution patient sent for CT imaging of the head, C-spine, and L-spine as she complained of back pain. CT imaging was reassuring and no acute traumatic injury was noted. X-ray of the chest and pelvis was unremarkable also. Patient's urine ultimately showed urinary tract infection which may have contributed to her worsening weakness and poor appetite over the last several days thus leading to the fall this evening. Given the elevated CK and mild rhabdomyolysis from laying on the ground for approximately 10 to 12 hours, I feel these likely contributed to the acute kidney injury noted. Patient denies any prior history of recurring or resistant UTIs. Patient and family were made aware of all results and were in agreement with plan. Patient had no other new or evolving symptoms while here. Patient remained hemodynamically stable in the emergency room. Patient's IV fluids were slowly infused due to small peripheral IV. I have a low suspicion for any other occult traumatic injury despite use of anticoagulation. H&H is stable, and no evolving abnormal vital signs after a lready presenting 12 hours after the initial fall. Impression & Plan Sepsis, NOE (acute kidney injury), Rhabdomyolysis, Fall, Low back pain, UTI (urinary tract infection) Discharge Plan Visit Data *Final* Discharge Date/Time: 06/25/19 03:21 Chief Complaint: Fall ED Provider: Sofia Perez Discharge Problem: Sepsis, NOE (acute kidney injury), Rhabdomyolysis, Fall, Low back pain, UTI (urinary tract infection) Patient Disposition: Admitted As Inpatient Discharge Instructions Interventions: ED Discharge Assessment Last Done: 06/25/19 03:21 Discharge Problem: Sepsis Qualifiers: Sepsis type: sepsis due to unspecified organism Sepsis acute organ dysfunction status: unspecified Qualified Code(s): A41.9 - Sepsis, unspecified organism Rhabdomyolysis Qualifiers: Rhabdomyolysis type: traumatic Encounter type: initial encounter Qualified Code(s): T79.6XXA - Traumatic ischemia of muscle, initial encounter Fall Qualifiers: Encounter type: initial encounter Qualified Code(s): W19.XXXA - Unspecified fall, initial encounter Low back pain Qualifiers: Chronicity: acute Back pain laterality: bilateral Sciatica presence: without sciatica Qualified Code(s): M54.5 - Low back pain UTI (urinary tract infection) Qualifiers: Urinary tract infection type: site unspecified Hematuria presence: without hematuria Qualified Code(s): N39.0 - Urinary tract infection, site not specified The scribe's documentation has been prepared under my direction and personally reviewed by me in its entirety. I confirm that the note above accurately refle cts all work, treatment, procedures, and medical decision making performed by me.
[2019-06-25] MEDS ORDERED: DEXTROSE 50% 50 ML SYRINGE IV PRN (06:03)
[2019-06-25] MEDS ORDERED: GLUCOSE 10 TABS/TUBE PO PRN (06:03)
[2019-06-25] MEDS ORDERED: GLUCOSE 40% GEL 15 GM TUBE PO PRN (06:03)
[2019-06-25] MEDS ORDERED: CARBOHYDRATES FOR HYPOGLYCEMIA PO PRN (06:03)
[2019-06-25] MEDS ORDERED: GLUCAGON FOR INJ 1 MG VIAL SQ PRN (06:03)
[2019-06-25 06:08] LABS: Basophils # (auto) 0.01 K/uL (0-0.2); Basophils % (auto) 0.1 %; Hematocrit (blood only) 32.7 % (37-47); Hemoglobin 11.1 g/dL (12.0-16.0); Immature Granulocytes # (auto) 0.03 K/uL (0.00-0.02); Immature Granulocytes % (auto) 0.3 %; Lymphocytes # (auto) 0.91 K/uL (1.2-3.4); Lymphocytes % (auto) 8.1 %; Mean Corpuscular Hemoglobin 29.3 pg (25-34); Mean Corpuscular Hgb Conc 33.9 g/dL (32-36); Mean Corpuscular Volume 86.3 fL (80-100); Mean Platelet Volume 9.9 fL (7.4-10.4); Monocytes # (auto) 0.79 K/uL (0.11-0.59); Monocytes % (auto) 7.1 %; Neutrophils # (auto) 9.43 K/uL (1.4-6.5); Neutrophils % (auto) 84.4 %; Platelet Count 174 K/uL (130-400); RDW Coefficient of Variation 14.4 % (11.5-14.5); RDW Standard Deviation 45.4 fL (36.4-46.3); Red Blood Count 3.79 M/uL (4.2-5.4); White Blood Count 11.17 K/uL (4.8-10.8)
[2019-06-25] MEDS: METOPROLOL SUCC 50MG EXT REL TAB PO SCH (06:14)
[2019-06-25] MEDS: INSULIN ASPART 100 UNITS/ML 3 ML PEN SC SCH ×4 (06:20→20:42)
[2019-06-25 06:52] LABS: Albumin Level 2.4 gm/dl (3.4-5.0); BUN Creatinine Ratio 29.4 (10-20); Calcium 7.5 mg/dl (8.5-10.1); Creatinine Clr Calc Pharmacy 30.5 ml/min; Est GFR (African American) 30.2; Est GFR (Non-African American) 26.1; Potassium 4.2 mmol/L (3.5-5.1)
--- NOTE | 2019-06-25 07:04 | CT Scan Report ---
HEAD CT NONCONTRAST CT DOSE: HISTORY: trauma TECHNIQUE: Multiaxial CT images of the head were performed without the use of intravenous contrast. A utomated exposure control was utilized for this study. A dose lowering technique was utilized adheri ng to the principles of ALARA. Comparison: None. Findings: The paranasal sinuses and mastoid air cells are clear. The calvarium and skull base are int act. There is no mass, hematoma, midline shift, acute infarct. White matter hypodensity is nonspecifi c but suggestive of microvascular ischemic change. The ventricles and sulci demonstrate mild age-rela tato involutional changes. Impression: No acute intracranial abnormality. Atrophy and microvascular ischemic changes. Electronically signed by: Barry Ames M.D. 06/25/2019 7:03 AM
--- NOTE | 2019-06-25 07:07 | CT Scan Report ---
LUMBAR SPINE CT CT DOSE: 910.83 mGy.cm HISTORY: trauma, pain TECHNIQUE: Multiaxial CT images of the lumbar spine were performed and reformatted in the sagittal an d coronal plane without the use of contrast. A dose lowering technique was utilized adhering to the principles of ALARA. COMPARISON: None. FINDINGS: No fracture. Osteopenia and degenerative changes are noted. Posterior decompression fusion from L2 through S1 with pedicle screws and rods. The hardware appears intact. 4 mm of anterolisthesis of L4 and L5. No traumatic subluxation identified. IMPRESSION: No fractures within the lumbar spine. Electronically signed by: Barry Ames M.D. 06/25/2019 7:06 AM
--- NOTE | 2019-06-25 07:12 | CT Scan Report ---
CT SCAN OF THE CERVICAL SPINE CLINICAL HISTORY: Fall. COMPARISON STUDY: No priors. TECHNIQUE: CT scan of the cervical spine is performed from the skull base to the upper thoracic spine . Images are reviewed in the axial, sagittal, and coronal planes. IV contrast was not administered fo r this examination. A dose lowering technique was utilized adhering to the principles of ALARA. CT DOSE: 1255.91 mGy.cm FINDINGS: Skeletal structures: The skeletal structures are osteopenic. There is no evidence of fracture or subl uxation involving the cervical spine. Vertebral body height is maintained. There is minimal anterolis thesis at C4-C5 and C5-C6. Alignment is otherwise preserved. Anterior osteophytes are seen throughout . The odontoid process and lateral masses are intact. The atlantoaxial articulation is preserved noti ng productive degenerative change. The spinous processes appear intact. There is moderate multilevel cervical spondylosis. Uncovertebral and facet arthropathy contribute to neural foraminal stenosis at several levels. Intervertebral discs: There is moderate disc space narrowing seen at C6-C7. The remaining disc spaces appear maintained. Central canal: A posterior disc osteophyte complex at C6-C7 likely contribute to acquired compromise of the central canal. Soft tissues: The prevertebral and paraspinous soft tissues are within normal limits. Pacemaker leads are noted in the left axillary region. There are numerous calcified sialoliths present within the pa rotid glands. Atherosclerotic calcification is noted in the carotid bulbs. The thyroid gland appears enlarged and heterogeneous. Calvarium: The visualized calvarium at the skull base appears intact. Brain parenchyma: Partially visualized brain parenchyma the skull base is within normal limits. Sinuses and mastoids: There is trace mucosal thickening within the sphenoid sinuses and the right max illary antrum. There is a small left mastoid effusion. The right mastoid air cells are well pneumatiz ed. IMPRESSION: 1. There is no evidence of fracture or subluxation involving the cervical spine. 2. Osteopenia and spondylotic change as above. Electronically signed by: Kevin Baptiste M.D. 06/25/2019 7:10 AM
--- NOTE | 2019-06-25 07:14 | XRay Report ---
SINGLE VIEW CHEST CLINICAL HISTORY: Sepsis. Fall. FINDINGS: An AP, portable, upright chest radiograph is compared to study dated 01/30/2018 and correlat ed with chest CT dated 12/19/2017. The examination is degraded by portable technique and patient rotat ion. A 2-lead cardiac pacemaker is unchanged in position. The heart is enlarged and there is atherosc lerotic calcification of the thoracic aorta. The pulmonary vasculature is noncongested. Chronic inter stitial thickening is similar to previous. No airspace consolidation or large pleural effusion is aury ntified. Atelectasis is noted at the lung bases. No pneumothorax is seen. The skeletal structures are osteopenic. The bony thorax is grossly intact. Surgical clips are noted in the right axilla. IMPRESSION: 1. Cardiomegaly and cardiac pacemaker. There is no radiographic evidence of congestive failure. 2. No airspace consolidation or large pleural effusion is identified. Electronically signed by: Kevin Baptiste M.D. 06/25/2019 7:13 AM
[2019-06-25 07:15] LABS: Estimated Average Glucose 171 mg/dl; Hemoglobin A1C 7.6 % (4.5-5.6)
[2019-06-25 07:27] LABS: Albumin Globulin Ratio 0.6 (0.9-2); Bilirubin,Total 0.4 mg/dl (0.2-1); Globulin 4.2 gm/dl (2.5-4.0); Total Protein 6.6 gm/dl (6.4-8.2)
--- NOTE | 2019-06-25 07:50 | XRay Report ---
SINGLE VIEW PELVIS CLINICAL HISTORY: Trauma. FINDINGS: An AP, portable, supine pelvic radiograph is obtained. No prior studies are available for c omparison at the time of dictation. The skeletal structures are heterogeneously osteopenic. There is no radiographic evidence of fracture involving the hips or bony pelvis. Moderate arthritic change and joint space narrowing is seen in the hips. Enthesophytes arise from the anterior superior iliac spin es and the greater trochanters of the proximal femora. Degenerative sclerosis is noted in the sacroil iac joints. Extensive lumbosacral spinal fusion hardware is in place. The overlying soft tissues are normal in appearance. Numerous pelvic phleboliths are observed. IMPRESSION: There is no radiographic evidence of acute fracture involving the hips or bony pelvis. Electronically signed by: Kevin Baptiste M.D. 06/25/2019 7:48 AM
[2019-06-25] MEDS: OXYBUTYNIN CHLORIDE XL 5 MG TABCR PO SCH (08:07)
[2019-06-25] MEDS: methIMAzole 5 MG TABLET PO SCH (08:08)
[2019-06-25] MEDS: ASPIRIN 325 MG ECTAB PO SCH (08:08)
[2019-06-25] MEDS: FLUOXETINE HCL 10 MG CAP PO SCH (08:08)
[2019-06-25] MEDS ORDERED: METOPROLOL SUCC 50MG EXT REL TAB PO SCH (09:00)
[2019-06-25] MEDS ORDERED: CEFEPIME CONSULT ACTIVE PRN (09:00)
--- NOTE | 2019-06-25 09:56 | Hospitalist Progress Note ---
Date of Service June 25, 2019 Assessment & Plan (1) Severe sepsis: -fever on admission with elevated white blood cell count above 10,000 -suspected urinary tract infection -while patient may have history aortic stenosis status post TAVR (11/2017) and history of pacemaker, it is unlikely that patient has endocarditis at this time -follow admission blood culture results and urine culture while on cefepime and vancomycin History of sick sinus syndrome Presence of pacemaker Anticoagulated on coumadin anticoagulation therapy -patient is paced on telemetry monitoring -continue coumadin as 2.5 mg daily on Sunday and , and 5 mg daily on other days of the week Hypertension -hold home dose lisinopril for now while trending creatinine on IV fluids -IV Lasix 20 mg x 1 ordered on 06/25/19 as patient concerned about upper extremity swelling while on IV fluids (2) Fall: -continue PT/OT evaluations (3) Rhabdomyolysis: rhabdomyolysis secondary to trauma (and being on the floor for around 10 hours at home) -admission creatinine kinase above 7000 -give IV fluids and trend creatinine kinase (4) NOE (acute kidney injury): acute kidney injury on chronic kidney disease -creatinine downtrending with IV fluids -monitor renal function while on empiric Vancomycin Hyperthyroidism -stable recent outpatient TSH on current methimazole -continue methimazole Diabetes Mellitus 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 on coumadin. INR goal between 2 and 3 Full code Patient's daughter Ms. Sofia Yoo, contact #[phone]. Subjective patient has weakness, not able to sit up on her own. reports that she lives independently at home and uses cane or walker at home. feels cold but current body temperature is normal. no chest pain. no abdomen pain. she is able to urinate. no dysuria. no vomiting. no shortness of breath. breathing on room air. patient and family bedside is concerned that the upper extremity is somewhat more puffy than usual but no obvious gross edema on physical exam Physical Exam Constitutional: WD/WN, vitals as above comfortable ENMT: external ear and nose normal, oropharynx normal Respiratory: normal respiratory effort, lungs clear to auscultation Cardiovascular: pace rate and rhythm Gastrointestinal (Abdomen): normal bowel sounds, soft, nontender, no hepatosplenomegaly Musculoskeletal: Head/Neck/Chest: normocephalic and head atraumatic Neurologic: PERRL, EOMI, accommodation nl, no face palsy, no dysarthria patient has weakness, not able to sit up on her own Psychiatric: A+Ox3, euthymic affect Results & Data Vital Signs (Past 12 Hours) Vital Signs Temp Pulse Pulse Resp BP BP Pulse Ox 06/25/19 09:38 37.0 C 06/25/19 08:10 60 06/25/19 07:41 37.1 C 69 20 150/80 H 98 06/25/19 04:38 37.1 C 85 20 177/73 H 96 06/25/19 03:30 36.7 C 63 14 120/74 95 06/25/19 03:00 60 20 122/61 100 06/25/19 02:30 60 20 128/63 100 06/25/19 02:00 62 20 127/65 100 06/25/19 01:30 37.8 C H 60 20 121/64 100 06/25/19 01:13 60 20 134/63 100 06/25/19 01:00 60 22 126/64 98 06/25/19 00:00 70 20 155/89 H 99 06/24/19 23:56 100 06/24/19 23:33 39.8 C H 80 22 173/85 H 99 (1) Rhabdomyolysis Encounter type: initial encounter Rhabdomyolysis type: traumatic Qualified Code(s): T79.6XXA - Traumatic ischemia of muscle, initial encounter (2) Fall Encounter type: initial encounter Qualified Code(s): W19.XXXA - Unspecified fall, initial encounter
[2019-06-25] MEDS ORDERED: FUROSEMIDE 20 MG in SYRINGE 0 ML IV SCH (10:00)
[2019-06-25] MEDS: SODIUM CHLORIDE 0.9% 1000ML 1,000 ML IV SCH (10:34)
--- NOTE | 2019-06-25 14:25 | Pharmacy Report ---
Pharmacy Abx Initial Consult - Date of Service June 25, 2019 - Pharmacy Dosing Scope Date of Consult: 06/25/19 Consultation requested by: Dr. Shelton Pharmacy is consulted to initiate Vancomycin IV dosing therapy, order appropriate labs and adjust drug dose/frequency. - Subjective The patient is a 88 year old F admitted on 06/25/19 03:04. - Objective Height: 5 ft 7 in Weight: 115.621 kg Vital Signs (Past 12hrs): Vital Signs Temp Pulse Pulse Resp BP Pulse Ox 06/25/19 12:29 93 06/25/19 11:39 37.0 C 79 18 114/65 97 06/25/19 09:38 37.0 C 06/25/19 08:10 60 06/25/19 07:41 37.1 C 69 20 150/80 H 98 06/25/19 04:38 37.1 C 85 20 177/73 H 96 06/25/19 03:30 36.7 C 63 14 120/74 95 06/25/19 03:00 60 20 122/61 100 06/25/19 02:30 60 20 128/63 100 Lab Results (24hrs): Laboratory Tests (24 Hours) 06/25/19 06/25/19 06/24/19 05:47 05:47 22:50 WBC 11.17 H Neut # (Auto) 9.43 H Creatinine 1.74 H D Est Cr Clr Drug Dosing 30.5 Total Creatine Kinase 7946 H Procalcitonin 15.39 H 06/24/19 06/24/19 22:50 22:50 WBC 15.40 H Neut # (Auto) 12.98 H Creatinine 2.17 H Est Cr Clr Drug Dosing 24.2 Total Creatine Kinase 7754 H Procalcitonin Micro Results: 06/25/19 00:35 Urine Culture - Pending Urine,Straight Cath 06/24/19 23:50 Aerobic Blood Culture - Pending Blood Anaerobic Blood Culture - Pending 06/25/19 00:00 Aerobic Blood Culture - Pending Blood Anaerobic Blood Culture - Pending - Assessment & Plan Assessment 88 year old F admitted with Sepsis, possible source UTI. Patient is ordered Cefepime and Vancomycin. She currently has NOE on top of CKD. Plan Vancomycin IV * Pharmacokinetic parameters were not calculated today since patient with NOE. Serum creatinine is downtrending, patient will probably have improved renal function tomorrow. * Loading dose: Vancomycin 2250 mg (20 mg/kg) x 1 dose given at 01:22 AM today. * Vanc 1500 mg IV (13.2 mg/kg) x1 dose was ordered for tonight at 2200. * Further dosing will need calculated once patient's renal function is stable. At that time, we can order a trough level. * Goal trough level for UTI: ~15 mcg/mL Pharmacy will continue to follow and will adjust dose/frequency as necessary. Thank you.
[2019-06-25] MEDS ORDERED: WARFARIN SOD 5 MG TAB PO SCH (16:00)
[2019-06-25] MEDS ORDERED: COUGH DROP (SUGAR FREE) LOZ 24 LOZ/1 BOX BUCCAL STA (18:56)
[2019-06-25] MEDS ORDERED: VANCOMYCIN HCL 1,500 MG in SODIUM CHLORIDE 0.9% 500 ML IV SCH (22:00)
[2019-06-25] MEDS: ACETAMINOPHEN 325 MG TAB PO PRN (22:01)
[2019-06-26] MEDS ORDERED: CEFEPIME 2,000 MG in SYRINGE 7.5 ML IV SCH
[2019-06-26] MEDS: SODIUM CHLORIDE 0.9% 1000ML 1,000 ML IV SCH ×2 (00:12→11:37)
[2019-06-26] MEDS: ACETAMINOPHEN 325 MG TAB PO PRN ×2 (06:31→20:27)
[2019-06-26 06:43] LABS: Basophils # (auto) 0.03 K/uL (0-0.2); Basophils % (auto) 0.3 %; Hematocrit (blood only) 31.8 % (37-47); Hemoglobin 10.4 g/dL (12.0-16.0); Immature Granulocytes # (auto) 0.06 K/uL (0.00-0.02); Immature Granulocytes % (auto) 0.6 %; Lymphocytes # (auto) 1.27 K/uL (1.2-3.4); Lymphocytes % (auto) 12.3 %; Mean Corpuscular Hemoglobin 28.3 pg (25-34); Mean Corpuscular Hgb Conc 32.7 g/dL (32-36); Mean Corpuscular Volume 86.4 fL (80-100); Mean Platelet Volume 10.2 fL (7.4-10.4); Monocytes # (auto) 1.09 K/uL (0.11-0.59); Monocytes % (auto) 10.5 %; Neutrophils % (auto) 75.3 %; Platelet Count 192 K/uL (130-400); RDW Coefficient of Variation 14.7 % (11.5-14.5); RDW Standard Deviation 46.8 fL (36.4-46.3); Red Blood Count 3.68 M/uL (4.2-5.4); White Blood Count 10.35 K/uL (4.8-10.8)
[2019-06-26 06:52] LABS: INR 3.4 (0.9-1.1); Prothrombin Time 31.8 Seconds (9.0-12.0)
[2019-06-26 07:19] LABS: Albumin Level 2.2 gm/dl (3.4-5.0); BUN Creatinine Ratio 26.4 (10-20); Calcium 7.7 mg/dl (8.5-10.1); Creatinine Clr Calc Pharmacy 35.1 ml/min; Est GFR (African American) 34.8
[2019-06-26 07:33] LABS: Albumin Globulin Ratio 0.5 (0.9-2); Bilirubin,Total 0.5 mg/dl (0.2-1); Globulin 4.4 gm/dl (2.5-4.0); Total Protein 6.6 gm/dl (6.4-8.2)
[2019-06-26] MEDS: ASPIRIN 325 MG ECTAB PO SCH (08:05)
[2019-06-26] MEDS: METOPROLOL SUCC 50MG EXT REL TAB PO SCH (08:05)
[2019-06-26] MEDS: methIMAzole 5 MG TABLET PO SCH (08:05)
[2019-06-26] MEDS: OXYBUTYNIN CHLORIDE XL 5 MG TABCR PO SCH (08:05)
[2019-06-26] MEDS: FLUOXETINE HCL 10 MG CAP PO SCH (08:06)
[2019-06-26] MEDS: INSULIN ASPART 100 UNITS/ML 3 ML PEN SC SCH ×4 (08:08→21:31)
[2019-06-26] MEDS: TRAMADOL HCL 50 MG TABLET PO PRN ×2 (11:16→15:45)
[2019-06-26] MEDS ORDERED: FUROSEMIDE 20 MG in SYRINGE 0 ML IV ONE (11:30)
--- NOTE | 2019-06-26 11:42 | Hospitalist Progress Note ---
Date of Service June 26, 2019 Assessment & Plan (1) Severe sepsis: Bacteremia Urinary tract infection -fever on admission with elevated white blood cell count above 10,000 -urinary tract infection with Escherichia coli and likely that the admission blood culture of gram negative bacilli in 1 of the two 06/24/19 blood cultures is also E.coli but speciation and sensitivities are still pending -continue cefepime which was started empirically on admission, stopped IV vancomycin on 06/26/19 -while patient may have history aortic stenosis status post TAVR (11/2017) and history of pacemaker, echocardiogram completed and awaiting results History of sick sinus syndrome Presence of pacemaker Anticoagulated on coumadin anticoagulation therapy -patient is paced on telemetry monitoring -INR goal is 2 to 3 -INR 3.4 on 06/26/19 and will hold coumadin due to supratherapeutic INR Cough and left upper extremity edema likely due to volume overload from IV fluids -Chest X ray ordered -echocardiogram results pending -left upper extremity ultrasound ordered to rule out DVT -IV fluids to be held on 06/26/19, treat with IV Lasix Hypertension -hold home dose lisinopril for now because of acute kidney injury -IV Lasix 20 mg x 1 ordered on 06/25/19 as patient concerned about upper extremity swelling while on IV fluids -additional 20 mg IV BID Lasix ordered on 06/26/19 Fall -Fall at home -PT/OT evaluations at this time suggest need for placement to physical rehabilitation center or long term facility after hospital stay Rhabdomyolysis: -rhabdomyolysis secondary to trauma (and being on the floor for around 10 hours at home) -admission creatinine kinase above 7000 -creatinine kinase downtrending after IV fluids, continue to trend creatinine kinase, oral hydration for now NOE (acute kidney injury): acute kidney injury on chronic kidney disease -creatinine downtrending with IV fluids, oral hydration for now Hyperthyroidism -stable recent outpatient TSH on current methimazole -continue methimazole Diabetes Mellitus without half-way use of insulin and without complications -hold home dose glipizide -sliding scale insulin while inpatient chronic anemia -trend hemoglobin DVT prophylaxis: mildly supratherapeutic INR from coumadin Full code Patient's daughter Ms. Sofia Yoo, contact #[phone]. Subjective Patient breathing on room air. Having some cough. But lungs sounds generally clear on auscultation. left upper extremity edema is more pronounced today. Has been on IV fluids and IV fluids to be stopped with additional IV Lasix to be given. no fevers today. no abdomen pain. no vomiting. no chest pain. no dizziness. no lightheadedness Physical Exam Constitutional: WD/WN, vitals as above comfortable Eyes: PERRL, conjunctivae normal, anicteric sclerae EOM intact bilaterally ENMT: external ear and nose normal, oropharynx normal Respiratory: normal respiratory effort, lungs clear to auscultation Cardiovascular: Rate/Rhythm: + bradycardic Gastrointestinal (Abdomen): normal bowel sounds, soft, nontender, no hepatosplenomegaly Musculoskeletal: Head/Neck/Chest: normocephalic and head atraumatic Extremities: + upper extremity abnormal to inspection (left upper extremity edema) Neurologic: PERRL, EOMI, accommodation nl, no face palsy, no dysarthria Psychiatric: A+Ox3, euthymic affect Results & Data Vital Signs (Past 12 Hours) Vital Signs Temp Pulse Pulse Resp BP Pulse Ox 06/26/19 07:36 37.3 C 61 20 120/74 94 06/26/19 07:18 62 06/26/19 04:00 37.0 C 72 20 146/80 H 95 06/26/19 02:04 66
--- NOTE | 2019-06-26 12:42 | XRay Report ---
TWO VIEW CHEST CLINICAL HISTORY: Sepsis. FINDINGS: AP and lateral chest radiographs are compared to study dated 06/25/2019. There is evidence of previous cardiac valve surgery. A 2-lead cardiac pacemaker is unchanged in position. The heart is en larged and there is atherosclerotic calcification of the thoracic aorta. The pulmonary vasculature is noncongested. No airspace consolidation or pleural effusion is identified. There is mild left basila r atelectasis. There is no pneumothorax. The bony thorax appears intact. Surgical clips are noted in the right axilla. IMPRESSION: 1. Cardiomegaly and cardiac pacemaker. There is no radiographic evidence of congestive failure. 2. No airspace consolidation or pleural effusion is identified. Electronically signed by: Kevin Baptiste M.D. 06/26/2019 12:41 PM
[2019-06-26] MEDS: CEFEPIME 2,000 MG in SYRINGE 7.5 ML IV SCH ×2 (13:09→23:02)
--- NOTE | 2019-06-26 13:09 | Ultrasound Report ---
ULTRASOUND LEFT UPPER EXTREMITY VENOUS CLINICAL HISTORY: Left arm swelling. COMPARISON STUDY: No priors. TECHNIQUE: Real-time, grayscale, and color Doppler sonography of the deep veins of the left upper ext remity is performed. Compression and augmentation were utilized. FINDINGS: There is no sonographic evidence of deep venous thrombosis identified in the left upper ext remity. The left internal jugular, axillary, and brachial veins are patent and normally compressible. Normal venous waveforms and augmentation are seen within the left subclavian vein. The cephalic and basilic veins are clear. The visualized radial and ulnar veins are patent. Pacemaker leads are noted in the left subclavian vein. IMPRESSION: There is no sonographic evidence of deep venous thrombosis identified in the left upper e xtremity. Electronically signed by: Kevin Baptiste M.D. 06/26/2019 1:08 PM
[2019-06-26] MEDS ORDERED: WARFARIN SOD 2.5 MG TAB PO SCH (16:00)
[2019-06-26] MEDS: FUROSEMIDE 20 MG in SYRINGE 0 ML IV SCH (20:19)
[2019-06-26] MEDS: LISINOPRIL 10 MG TAB PO SCH (20:23)
[2019-06-27] MEDS: ACETAMINOPHEN 325 MG TAB PO PRN ×4 (01:54→21:38)
[2019-06-27 07:12] LABS: Basophils # (auto) 0.07 K/uL (0-0.2); Basophils % (auto) 0.7 %; Eosinophils # (auto) 0.25 K/uL (0-0.5); Eosinophils % (auto) 2.4 %; Hematocrit (blood only) 31.2 % (37-47); Hemoglobin 10.1 g/dL (12.0-16.0); Immature Granulocytes # (auto) 0.08 K/uL (0.00-0.02); Immature Granulocytes % (auto) 0.8 %; Lymphocytes % (auto) 15.3 %; Mean Corpuscular Hemoglobin 28.2 pg (25-34); Mean Corpuscular Hgb Conc 32.4 g/dL (32-36); Mean Corpuscular Volume 87.2 fL (80-100); Mean Platelet Volume 9.9 fL (7.4-10.4); Monocytes # (auto) 1.24 K/uL (0.11-0.59); Monocytes % (auto) 11.8 %; Neutrophils # (auto) 7.23 K/uL (1.4-6.5); Platelet Count 203 K/uL (130-400); RDW Coefficient of Variation 14.7 % (11.5-14.5); RDW Standard Deviation 46.8 fL (36.4-46.3); Red Blood Count 3.58 M/uL (4.2-5.4); White Blood Count 10.47 K/uL (4.8-10.8)
[2019-06-27 07:17] LABS: INR 2.5 (0.9-1.1); Prothrombin Time 24.3 Seconds (9.0-12.0)
[2019-06-27 07:46] LABS: Creatinine Clr Calc Pharmacy 39.2 ml/min; Est GFR (African American) 39.7; Est GFR (Non-African American) 34.2; Potassium 3.8 mmol/L (3.5-5.1)
[2019-06-27] MEDS: INSULIN ASPART 100 UNITS/ML 3 ML PEN SC SCH ×4 (08:55→20:57)
[2019-06-27] MEDS: LISINOPRIL 10 MG TAB PO SCH ×2 (09:00→20:51)
[2019-06-27] MEDS: ROSUVASTATIN CALCIUM 10 MG TAB PO SCH (09:00)
[2019-06-27] MEDS: ASPIRIN 325 MG ECTAB PO SCH (09:00)
[2019-06-27] MEDS: FLUOXETINE HCL 10 MG CAP PO SCH (09:00)
[2019-06-27] MEDS: methIMAzole 5 MG TABLET PO SCH (09:00)
[2019-06-27] MEDS: METOPROLOL SUCC 50MG EXT REL TAB PO SCH (09:01)
[2019-06-27] MEDS: OXYBUTYNIN CHLORIDE XL 5 MG TABCR PO SCH (09:01)
[2019-06-27] MEDS: FUROSEMIDE 20 MG in SYRINGE 0 ML IV SCH (09:01)
[2019-06-27] MEDS: CEFEPIME 2,000 MG in SYRINGE 7.5 ML IV SCH (11:02)
--- NOTE | 2019-06-27 13:26 | Hospitalist Progress Note ---
Date of Service June 27, 2019 Assessment & Plan (1) Severe sepsis: Bacteremia Urinary tract infection -fever on admission with elevated white blood cell count above 10,000 -has been on cefepime which was started empirically on admission, stopped IV vancomycin on 06/26/19 -urinary tract infection with pansensitive Escherichia coli and the admission blood culture of gram negative bacilli in 1 of the two 06/24/19 blood cultures has speciated as a pansensitive E.coli -repeat blood cultures from 06/26/19 no growth to date -continue cefepime for now and awaiting Infection disease consult on antibiotic recommendations based on recent culture blood cultures History of sick sinus syndrome History aortic stenosis status post TAVR (11/2017) Presence of pacemaker Anticoagulated on coumadin anticoagulation therapy -patient is paced on telemetry monitoring -INR goal is 2 to 3 -INR 3.4 on 06/26/19 and coumadin held due to supratherapeutic INR, INR is 2.5 on 06/27/19 and to resume home dose coumadin Cough and left upper extremity edema likely due to volume overload from IV fluids Diastolic Dysfunction -06/26/19 Transthoracic echocardiogram with normal ejection fraction and grade 2 diastolic dysfunction; no vegetations detected on Transthoracic echocardiogram -06/26/19 Chest X ray clear -06/26/19 no right upper extremity DVT on ultrasound -has received Lasix -Chest X ray ordered -echocardiogram results pending -left upper extremity ultrasound ordered to rule out DVT -IV fluids to be held on 06/26/19, treat with IV Lasix Hypertension -hold home dose lisinopril for now because of acute kidney injury -IV Lasix 20 mg x 1 ordered on 06/25/19 as patient concerned about upper extremity swelling while on IV fluids -additional 20 mg IV BID Lasix ordered on 06/26/19 -IV Lasix 20 mg IV x 1 given on 06/27/19 Fall Ambulatory Dysfunction -Fall at home -based on patient's deficits with mobility and results of strength testing by PT/OT, they recommend physical rehabilitation placement after hospital stay -case management also has been applying for physical rehabilitation center because of ambulatory dysfunction Rhabdomyolysis: -rhabdomyolysis secondary to trauma (and being on the floor for around 10 hours at home) -admission creatinine kinase above 7000 -creatinine kinase downtrending after IV fluids, continue to trend creatinine kinase, oral hydration for now -currently creatinine kinase is 2627 and downtrending NOE (acute kidney injury): acute kidney injury on chronic kidney disease -creatinine downtrending with IV fluids, oral hydration for now -currently creatinine is 1.39 and downtrending Hyperthyroidism -stable recent outpatient TSH on current methimazole -continue methimazole Diabetes Mellitus without meterman use of insulin and without complications -hold home dose glipizide -sliding scale insulin while inpatient chronic anemia -trend hemoglobin DVT prophylaxis:INR is 2.5 on coumadin Full code Patient's daughter Ms. Sofia Yoo, contact #[phone]. Disposition: will need to finalize assessment of course and duration of antibiotic treatment; case management also has been applying for physical rehabilitation center because of ambulatory dysfunction Subjective Left upper extremity edema appears slightly less than yesterday. patient reports less cough today. breathing on room air. no chest pain. no palpitations. no abdomen pain. no vomiting. no nausea. no dizziness. no lightheadedness. Physical Exam Constitutional: WD/WN, vitals as above comfortable Eyes: PERRL, conjunctivae normal, anicteric sclerae EOM intact bilaterally ENMT: external ear and nose normal, oropharynx normal Respiratory: normal respiratory effort, lungs clear to auscultation Cardiovascular: Rate/Rhythm: + bradycardic Gastrointestinal (Abdomen): normal bowel sounds, soft, nontender, no hepatosplenomegaly Musculoskeletal: Head/Neck/Chest: normocephalic and head atraumatic Extremities: + upper extremity abnormal to inspection (left upper extremity edema) Neurologic: PERRL, EOMI, accommodation nl, no face palsy, no dysarthria Psychiatric: A+Ox3, euthymic affect Results & Data Vital Signs (Past 12 Hours) Vital Signs Temp Pulse Resp BP Pulse Ox 06/27/19 07:09 36.3 C L 63 20 157/73 H 93
--- NOTE | 2019-06-27 14:14 | Infectious Disease Consult ---
Date of Consultation June 27, 2019 Assessment & Plan (1) E. coli sepsis: can continue cefepime for now, upon d/c would change to Keflex 500mg po bid to complete 14 days from first negative blood culture (06/26), echo negative. Ok for d/c from ID standpoint when otherwise stable (2) UTI (urinary tract infection): History of Present Illness Attending Physician: Jc Albert MD pt admitted after fall at home, was on floor for prolonged time. still c/o back and thigh pain but overall improved. creat 2.9 in ER, improving. wbc 15 in ER, now 10. UA >30 wbc and +4 bacteria, culture growing pansensitive E.coli, 1 blood culture from ER growing same, repeat cultures 06/26 negative to date. Feeling better. denies cp, sob, santos, cough, no abd pain no n/v/d. currently denies gu symptoms, on cefepime and tolerating well. ID consulted for duration of therapy. Allergies Allergy/AdvReac Type Severity Reaction Status Date / Time Cipro Allergy Intermediate RASH? Verified 01/29/18 06:42 ciprofloxacin AdvReac Intermediate RASH? Verified 06/25/19 19:07 ropinirole AdvReac Intermediate COUGH,N&V Verified 06/25/19 00:21 atorvastatin AdvReac Mild LEG CRAMPS Verified 06/25/19 00:21 Home Medications Home Medications Medication Instructions Recorded Confirmed Type Tylenol Pain Relief 1 - 2 tab PO DIRECTED 06/25/19 06/25/19 History aspirin 325 mg PO DAILY 06/25/19 06/25/19 History biotin 1,000 mcg PO DAILY 06/25/19 06/25/19 History [id number] [Sinus 2 tab PO Q6H PRN 06/25/19 06/25/19 History Congestion-Pain(chlorph)] fluoxetine 10 mg PO DAILY 06/25/19 06/25/19 History furosemide [Lasix] 20 mg PO DAILY 06/25/19 06/25/19 History glipizide 2.5 mg PO DAILY 06/25/19 06/25/19 History hydrocortisone 1 applic TOPICAL BID PRN 06/25/19 06/25/19 History ibuprofen 200 mg PO Q6H PRN 06/25/19 06/25/19 History iron,carbonyl-vitamin C [Vitron-C] 1 tab PO DIRECTED 06/25/19 06/25/19 History lisinopril 10 mg PO BID 06/25/19 06/25/19 History loratadine 10 mg PO DAILY PRN 06/25/19 06/25/19 History meclizine 12.5 mg PO DIRECTED PRN 06/25/19 06/25/19 History methimazole [Tapazole] 5 mg PO DAILY 06/25/19 06/25/19 History metoprolol succinate [Toprol XL] 50 mg PO DAILY 06/25/19 06/25/19 History naproxen sodium [Aleve] 220 mg PO Q8H PRN 06/25/19 06/25/19 History oxybutynin chloride [Ditropan XL] 10 mg PO DAILY 06/25/19 06/25/19 History potassium chloride 10 meq PO DAILY 06/25/19 06/25/19 History rosuvastatin [Crestor] 10 mg PO DAILY 06/25/19 06/25/19 History vitamin E 1 applic TOPICAL BID PRN 06/25/19 06/25/19 History vitamin E 1,000 unit PO DAILY 06/25/19 06/25/19 History warfarin [Coumadin] 2.5 mg PO 2XWK 06/25/19 06/25/19 History warfarin [Coumadin] 5 mg PO 5XWK 06/25/19 06/25/19 History Patient History Medical History No chronic problems Surgical History H/O mastectomy History of bilateral knee replacement Family History Other No chronic problems Social History Preferred Language: Kiswahili Communication Ability: Effective [employer] Required: No Beliefs That Will Affect Care: None Current Living Situation: Alone Other Information That Helps Us Care for You: No Feels Safe at Home: Yes Safety Concerns: Feels Safe At This Time Smoking Status: Never smoker Hx Alcohol Use: No Hx Substance Use: No Review of Systems Review of Systems: All systems reviewed & are unremarkable except as noted in HPI & below Physical Exam Constitutional: WD/WN, vitals as above Eyes: PERRL, conjunctivae normal, anicteric sclerae ENMT: external ear and nose normal, oropharynx normal Neck: normal visual inspection Respiratory: normal respiratory effort, lungs clear to auscultation Cardiovascular: RRR, no murmur, no edema Gastrointestinal (Abdomen): normal bowel sounds, soft, nontender, no hepatosplenomegaly Musculoskeletal: no cyanosis or clubbing, extremities motor strength 5/5 Skin: no rashes, warm and dry + ecchymosis Psychiatric: A+Ox3, euthymic affect Results & Data Vital Signs (Past 12 Hours) Vital Signs Temp Pulse Resp BP Pulse Ox 06/27/19 07:09 36.3 C L 63 20 157/73 H 93 Laboratory Results Microbiology 06/26/19 12:15 Blood Aerobic Blood Culture - Preliminary No growth in Aerobic bottle after 24 hours. 06/26/19 12:24 Blood Aerobic Blood Culture - Preliminary No growth in Aerobic bottle after 24 hours. 06/26/19 12:24 Blood Anaerobic Blood Culture - Preliminary No growth in Anaerobic bottle after 24 hours. 06/25/19 00:35 Urine,Straight Cath Urine Culture - Final Escherichia coli 06/24/19 23:50 Blood Aerobic Blood Culture - Preliminary No growth in Aerobic bottle after 48 hours. 06/24/19 23:50 Blood Anaerobic Blood Culture - Preliminary Escherichia coli 06/25/19 00:00 Blood Aerobic Blood Culture - Preliminary No growth in Aerobic bottle after 48 hours. 06/25/19 00:00 Blood Anaerobic Blood Culture - Final PG Care Time/CCT Total # of Minutes Spent Total Time Spent with Patient: Total time spent is greater than 50% in coordination of care (as documented) at patient's floor/unit and/or counseling patient: (1) UTI (urinary tract infection) Hematuria presence: without hematuria Urinary tract infection type: site unspecified Qualified Code(s): N39.0 - Urinary tract infection, site not specified
[2019-06-27] MEDS ORDERED: cephALEXin 500 MG CAP PO ONE (21:00)
[2019-06-28] MEDS: ACETAMINOPHEN 325 MG TAB PO PRN ×3 (03:41→19:36)
[2019-06-28 06:47] LABS: Hematocrit (blood only) 32.5 % (37-47); Hemoglobin 10.7 g/dL (12.0-16.0); Mean Corpuscular Hemoglobin 28.7 pg (25-34); Mean Corpuscular Hgb Conc 32.9 g/dL (32-36); Mean Corpuscular Volume 87.1 fL (80-100); Mean Platelet Volume 9.8 fL (7.4-10.4); Platelet Count 231 K/uL (130-400); RDW Coefficient of Variation 14.6 % (11.5-14.5); RDW Standard Deviation 46.6 fL (36.4-46.3); Red Blood Count 3.73 M/uL (4.2-5.4); White Blood Count 11.05 K/uL (4.8-10.8)
[2019-06-28 06:56] LABS: INR 2.3 (0.9-1.1); Prothrombin Time 21.8 Seconds (9.0-12.0)
[2019-06-28 07:28] LABS: Calcium 8.1 mg/dl (8.5-10.1); Creatinine Clr Calc Pharmacy 42.2 ml/min; Est GFR (African American) 43.4; Est GFR (Non-African American) 37.5; Potassium 3.5 mmol/L (3.5-5.1)
[2019-06-28 07:48] LABS: Basophils # (auto) 0.12 K/uL (0-0.2); Basophils % (auto) 1.1 %; Eosinophils # (auto) 0.44 K/uL (0-0.5); Immature Granulocytes # (auto) 0.26 K/uL (0.00-0.02); Immature Granulocytes % (auto) 2.4 %; Lymphocytes # (auto) 1.84 K/uL (1.2-3.4); Lymphocytes % (auto) 16.7 %; Monocytes # (auto) 1.04 K/uL (0.11-0.59); Monocytes % (auto) 9.4 %; Neutrophils # (auto) 7.35 K/uL (1.4-6.5); Neutrophils % (auto) 66.4 %
[2019-06-28] MEDS: FLUOXETINE HCL 10 MG CAP PO SCH (08:36)
[2019-06-28] MEDS: OXYBUTYNIN CHLORIDE XL 5 MG TABCR PO SCH (08:36)
[2019-06-28] MEDS: ROSUVASTATIN CALCIUM 10 MG TAB PO SCH (08:36)
[2019-06-28] MEDS: ASPIRIN 325 MG ECTAB PO SCH (08:36)
[2019-06-28] MEDS: METOPROLOL SUCC 50MG EXT REL TAB PO SCH (08:36)
[2019-06-28] MEDS: LISINOPRIL 10 MG TAB PO SCH ×2 (08:36→20:55)
[2019-06-28] MEDS: cephALEXin 500 MG CAP PO SCH ×2 (08:37→20:55)
[2019-06-28] MEDS: INSULIN ASPART 100 UNITS/ML 3 ML PEN SC SCH ×4 (08:42→20:58)
[2019-06-28] MEDS ORDERED: FUROSEMIDE 20 MG TAB PO SCH (09:00)
[2019-06-28] MEDS: methIMAzole 5 MG TABLET PO SCH (10:40)
--- NOTE | 2019-06-28 15:15 | Hospitalist Progress Note ---
Date of Service June 28, 2019 Assessment & Plan (1) Severe sepsis: Bacteremia Urinary tract infection -fever on admission with elevated white blood cell count above 10,000 -has been on cefepime which was started empirically on admission, stopped IV vancomycin on 06/26/19 -urinary tract infection with pansensitive Escherichia coli and the admission blood culture of gram negative bacilli in 1 of the two 06/24/19 blood cultures has speciated as a pansensitive E.coli -repeat blood cultures from 06/26/19 no growth to date -from 06/27/19 to 06/28/19, patient was transitioned from cefepime to Keflex 500 mg BID to to complete 14 days from first negative blood culture (06/26/19); tolerating oral antibiotics and continue History of sick sinus syndrome History aortic stenosis status post TAVR (11/2017) Presence of pacemaker Anticoagulated on coumadin anticoagulation therapy -patient is paced on telemetry monitoring -INR goal is 2 to 3 -current INR at goal, continue coumadin Cough and left upper extremity edema likely due to volume overload from IV fluids Diastolic Dysfunction -06/26/19 Transthoracic echocardiogram with normal ejection fraction and grade 2 diastolic dysfunction; no vegetations detected on Transthoracic echocardiogram -06/26/19 Chest X ray clear -06/26/19 no right upper extremity DVT on ultrasound -has received Lasix Hypertension -IV Lasix 20 mg x 1 ordered on 06/25/19 as patient concerned about upper extremity swelling while on IV fluids -additional 20 mg IV BID Lasix ordered on 06/26/19 -IV Lasix 20 mg IV x 1 given on 06/27/19 -currently on Lasix 20 mg oral on 06/28/19 -resume lisinopril as renal function improved Fall Ambulatory Dysfunction -Fall at home -based on patient's deficits with mobility and results of strength testing by PT/OT, they recommend physical rehabilitation placement after hospital stay -case management also has been applying for physical rehabilitation center because of ambulatory dysfunction Rhabdomyolysis: -rhabdomyolysis secondary to trauma (and being on the floor for around 10 hours at home) -admission creatinine kinase above 7000 -creatinine kinase downtrending after IV fluids, continue to trend creatinine kinase, oral hydration for now -currently creatinine kinase is 1172 and downtrending NOE (acute kidney injury): acute kidney injury on chronic kidney disease -creatinine downtrending with IV fluids, oral hydration for now -currently creatinine is 1.29 and downtrending Hyperthyroidism -stable recent outpatient TSH on current methimazole -continue methimazole 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 Sofia Yoo, contact #[phone]. Disposition: case management had applied for physical rehabilitation center because of ambulatory dysfunction and waiting on placement Subjective left upper extremity resolving. patient tolerating oral antibiotic at this time. Patient reports less cough. no abdomen pain. no vomiting. no headache. no dizziness. no shortness of breath. breathing on room air Physical Exam Constitutional: WD/WN, vitals as above comfortable Eyes: PERRL, conjunctivae normal, anicteric sclerae EOM intact bilaterally ENMT: external ear and nose normal, oropharynx normal Respiratory: normal respiratory effort, lungs clear to auscultation Cardiovascular: Rate/Rhythm: + bradycardic Gastrointestinal (Abdomen): normal bowel sounds, soft, nontender, no hepatosplenomegaly Musculoskeletal: Head/Neck/Chest: normocephalic and head atraumatic Neurologic: PERRL, EOMI, accommodation nl, no face palsy, no dysarthria Psychiatric: A+Ox3, euthymic affect Results & Data Vital Signs (Past 12 Hours) Vital Signs Temp Pulse Resp BP Pulse Ox 06/28/19 15:07 36.5 C 67 18 158/80 H 95 06/28/19 07:06 36.7 C 71 18 132/72 96 06/28/19 04:52 36.6 C 70 18 126/74 96
[2019-06-28] MEDS ORDERED: POTASSIUM CHLORIDE 20 MEQ TABCR PO ONE (15:45)
[2019-06-28] MEDS: WARFARIN SOD 5 MG TAB PO SCH (16:00)
[2019-06-28] MEDS ORDERED: LISINOPRIL 10 MG TAB PO SCH (21:00)
--- NOTE | 2019-06-29 08:38 | Hospitalist Progress Note ---
Date of Service June 29, 2019 Assessment & Plan (1) Severe sepsis: Bacteremia Urinary tract infection -fever on admission with elevated white blood cell count above 10,000 -has been on cefepime which was started empirically on admission, stopped IV vancomycin on 06/26/19 -urinary tract infection with pansensitive Escherichia coli and the admission blood culture of gram negative bacilli in 1 of the two 06/24/19 blood cultures has speciated as a pansensitive E.coli -repeat blood cultures from 06/26/19 no growth to date -from 06/27/19 to 06/28/19, patient was transitioned from cefepime to Keflex 500 mg BID to to complete 14 days from first negative blood culture (06/26/19); tolerating oral antibiotics and continue History of sick sinus syndrome History aortic stenosis status post TAVR (11/2017) Presence of pacemaker Anticoagulated on coumadin anticoagulation therapy -patient is paced on telemetry monitoring -INR goal is 2 to 3 -current INR at goal, continue coumadin Cough and left upper extremity edema likely due to volume overload from IV fluids Diastolic Dysfunction -06/26/19 Transthoracic echocardiogram with normal ejection fraction and grade 2 diastolic dysfunction; no vegetations detected on Transthoracic echocardiogram -06/26/19 Chest X ray clear -06/26/19 no right upper extremity DVT on ultrasound -has received Lasix Hypertension -IV Lasix 20 mg x 1 ordered on 06/25/19 as patient concerned about upper extremity swelling while on IV fluids -additional 20 mg IV BID Lasix ordered on 06/26/19 -IV Lasix 20 mg IV x 1 given on 06/27/19 -currently on Lasix 20 mg oral on 06/28/19, continue -resume lisinopril as renal function improved Fall Ambulatory Dysfunction -Fall at home -based on patient's deficits with mobility and results of strength testing by PT/OT, they recommend physical rehabilitation placement after hospital stay -case management also has been applying for physical rehabilitation center because of ambulatory dysfunction Rhabdomyolysis: -rhabdomyolysis secondary to trauma (and being on the floor for around 10 hours at home) -admission creatinine kinase above 7000 -creatinine kinase downtrending after IV fluids, continue to trend creatinine kinase, oral hydration for now -last check creatinine kinase is 1172 and downtrending NOE (acute kidney injury): acute kidney injury on chronic kidney disease -creatinine downtrending with IV fluids, oral hydration for now -last check creatinine is 1.29 and downtrending Hyperthyroidism -stable recent outpatient TSH on current methimazole -continue methimazole Diabetes 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 Sofia Yoo, contact #[phone]. Disposition: case management had applied for physical rehabilitation center because of ambulatory dysfunction and waiting on placement Subjective mild left upper extremity edema, left pedal edema. breathing on room air. ate meal. no vomiting. tolerating oral antibiotics. no fever. no abdomen pain. no chest pain. no shortness of breath. no dizziness. no lightheadedness Physical Exam Constitutional: WD/WN, vitals as above comfortable Eyes: PERRL, conjunctivae normal, anicteric sclerae EOM intact bilaterally ENMT: external ear and nose normal, oropharynx normal Respiratory: normal respiratory effort, lungs clear to auscultation Cardiovascular: Rate/Rhythm: + bradycardic Gastrointestinal (Abdomen): normal bowel sounds, soft, nontender, no hepatosplenomegaly Musculoskeletal: Head/Neck/Chest: normocephalic and head atraumatic Extremities: + upper extremity abnormal to inspection (left upper extremity edema) left pedal edema Neurologic: PERRL, EOMI, accommodation nl, no face palsy, no dysarthria Psychiatric: A+Ox3, euthymic affect Results & Data Vital Signs (Past 12 Hours) Vital Signs Temp Pulse Resp BP Pulse Ox 06/29/19 07:00 36.7 C 65 18 149/73 H 92 06/28/19 23:19 36.8 C 66 18 142/84 H 93
[2019-06-29] MEDS: LISINOPRIL 10 MG TAB PO SCH ×2 (08:51→20:23)
[2019-06-29] MEDS: OXYBUTYNIN CHLORIDE XL 5 MG TABCR PO SCH (08:51)
[2019-06-29] MEDS: cephALEXin 500 MG CAP PO SCH ×2 (08:52→20:23)
[2019-06-29] MEDS: ROSUVASTATIN CALCIUM 10 MG TAB PO SCH (08:52)
[2019-06-29] MEDS: ASPIRIN 325 MG ECTAB PO SCH (08:52)
[2019-06-29] MEDS: METOPROLOL SUCC 50MG EXT REL TAB PO SCH (08:52)
[2019-06-29] MEDS: methIMAzole 5 MG TABLET PO SCH (08:52)
[2019-06-29] MEDS: FLUOXETINE HCL 10 MG CAP PO SCH (08:52)
[2019-06-29] MEDS: INSULIN ASPART 100 UNITS/ML 3 ML PEN SC SCH ×4 (08:54→20:28)
[2019-06-29] MEDS: ACETAMINOPHEN 325 MG TAB PO PRN ×2 (08:55→16:32)
[2019-06-29] MEDS: FUROSEMIDE 20 MG TAB PO SCH (08:57)
[2019-06-29] MEDS: WARFARIN SOD 5 MG TAB PO SCH (16:29)
[2019-06-29] MEDS ORDERED: TRAMADOL HCL 50 MG TABLET PO STA (21:16)
[2019-06-30] MEDS: ACETAMINOPHEN 325 MG TAB PO PRN ×3 (00:26→21:14)
[2019-06-30 07:22] LABS: Hematocrit (blood only) 34.8 % (37-47); Hemoglobin 11.2 g/dL (12.0-16.0); Mean Corpuscular Hemoglobin 28.5 pg (25-34); Mean Corpuscular Hgb Conc 32.2 g/dL (32-36); Mean Corpuscular Volume 88.5 fL (80-100); Mean Platelet Volume 9.6 fL (7.4-10.4); Platelet Count 353 K/uL (130-400); RDW Coefficient of Variation 14.8 % (11.5-14.5); RDW Standard Deviation 47.9 fL (36.4-46.3); Red Blood Count 3.93 M/uL (4.2-5.4); White Blood Count 12.48 K/uL (4.8-10.8)
[2019-06-30] MEDS: LISINOPRIL 10 MG TAB PO SCH ×2 (07:34→21:11)
[2019-06-30] MEDS: FUROSEMIDE 20 MG TAB PO SCH (07:34)
[2019-06-30] MEDS: METOPROLOL SUCC 50MG EXT REL TAB PO SCH (07:35)
[2019-06-30] MEDS: ASPIRIN 325 MG ECTAB PO SCH (07:35)
[2019-06-30] MEDS: cephALEXin 500 MG CAP PO SCH ×2 (07:35→21:12)
[2019-06-30] MEDS: OXYBUTYNIN CHLORIDE XL 5 MG TABCR PO SCH (07:35)
[2019-06-30] MEDS: FLUOXETINE HCL 10 MG CAP PO SCH (07:35)
[2019-06-30] MEDS: ROSUVASTATIN CALCIUM 10 MG TAB PO SCH (07:35)
[2019-06-30] MEDS: methIMAzole 5 MG TABLET PO SCH (07:35)
[2019-06-30 07:38] LABS: INR 2.2 (0.9-1.1); Prothrombin Time 21.5 Seconds (9.0-12.0)
[2019-06-30 07:48] LABS: Basophils # (auto) 0.14 K/uL (0-0.2); Basophils % (auto) 1.1 %; Eosinophils # (auto) 0.44 K/uL (0-0.5); Eosinophils % (auto) 3.5 %; Immature Granulocytes # (auto) 0.74 K/uL (0.00-0.02); Immature Granulocytes % (auto) 5.9 %; Lymphocytes # (auto) 2.55 K/uL (1.2-3.4); Lymphocytes % (auto) 20.4 %; Monocytes # (auto) 1.15 K/uL (0.11-0.59); Monocytes % (auto) 9.2 %; Neutrophils # (auto) 7.46 K/uL (1.4-6.5); Neutrophils % (auto) 59.9 %; Toxic Granulation 1+
[2019-06-30 07:52] LABS: Albumin Globulin Ratio 0.6 (0.9-2); Albumin Level 2.6 gm/dl (3.4-5.0); BUN Creatinine Ratio 21.3 (10-20); Bilirubin,Total 0.5 mg/dl (0.2-1); Calcium 8.3 mg/dl (8.5-10.1); Creatinine Clr Calc Pharmacy 45.4 ml/min; Est GFR (African American) 47.4; Est GFR (Non-African American) 40.9; Globulin 4.6 gm/dl (2.5-4.0); Potassium 4.4 mmol/L (3.5-5.1); Total Protein 7.2 gm/dl (6.4-8.2)
[2019-06-30] MEDS: INSULIN ASPART 100 UNITS/ML 3 ML PEN SC SCH ×4 (08:24→21:14)
--- NOTE | 2019-06-30 14:33 | Hospitalist Progress Note ---
Date of Service June 30, 2019 Assessment & Plan (1) Severe sepsis: Bacteremia Urinary tract infection -fever on admission with elevated white blood cell count -had been on cefepime which was started empirically on admission, stopped IV vancomycin on 06/26/19 -urinary tract infection with pansensitive Escherichia coli and the admission blood culture of gram negative bacilli in 1 of the two 06/24/19 blood cultures has speciated as a pansensitive E.coli -repeat blood cultures from 06/26/19 no growth to date -from 06/27/19 to 06/28/19, patient was transitioned from cefepime to Keflex 500 mg BID to to complete 14 days from first negative blood culture (06/26/19); tolerating oral antibiotics and continue. Patient has been afebrile since 06/24/19 History of sick sinus syndrome History aortic stenosis status post TAVR (11/2017) Presence of pacemaker Anticoagulated on coumadin anticoagulation therapy -patient is paced on telemetry monitoring -INR goal is 2 to 3 -current INR at goal, continue coumadin Cough and left upper extremity edema likely due to volume overload from IV fluids Diastolic Dysfunction -06/26/19 Transthoracic echocardiogram with normal ejection fraction and grade 2 diastolic dysfunction; no vegetations detected on Transthoracic echocardiogram -06/26/19 Chest X ray clear -06/26/19 no right upper extremity DVT on ultrasound -has received Lasix Hypertension -IV Lasix 20 mg x 1 ordered on 06/25/19 as patient concerned about upper extremity swelling while on IV fluids -additional 20 mg IV BID Lasix ordered on 06/26/19 -IV Lasix 20 mg IV x 1 given on 06/27/19 -currently on Lasix 20 mg oral on 06/28/19, continue -on lisinopril 10 mg BID Fall Ambulatory Dysfunction -Fall at home -based on patient's deficits with mobility and results of strength testing by PT/OT, they recommend physical rehabilitation placement after hospital stay -case management also has been applying for physical rehabilitation center because of ambulatory dysfunction Rhabdomyolysis: -rhabdomyolysis secondary to trauma (and being on the floor for around 10 hours at home) -admission creatinine kinase above 7000 -creatinine kinase downtrending after IV fluids, continue to trend creatinine kinase, oral hydration for now -last check creatinine kinase is 433 and downtrending NOE (acute kidney injury): acute kidney injury on chronic kidney disease -creatinine downtrending with IV fluids, oral hydration for now -last check creatinine is 1.20 and downtrending Hyperthyroidism -stable recent outpatient TSH on current methimazole -continue methimazole Diabetes Mellitus without long winder tender use of insulin and without complications -hold home dose glipizide -sliding scale insulin while inpatient chronic anemia -trend hemoglobin DVT prophylaxis: on coumadin Full code Patient's daughter Ms. Sofia Yoo, contact #[phone]. Disposition: case management had applied for physical rehabilitation center because of ambulatory dysfunction and waiting on placement Subjective Patient seen and examined at bedside. mild increase in white blood cell count compared to yesterday. no fever. tolerating oral antibiotics. denies chest pain. no abdomen pain. no headache. no dizziness. no vomiting Physical Exam Constitutional: WD/WN, vitals as above comfortable Eyes: PERRL, conjunctivae normal, anicteric sclerae EOM intact bilaterally ENMT: external ear and nose normal, oropharynx normal Respiratory: normal respiratory effort, lungs clear to auscultation Cardiovascular: Rate/Rhythm: + bradycardic Gastrointestinal (Abdomen): normal bowel sounds, soft, nontender, no hepatosplenomegaly Musculoskeletal: Head/Neck/Chest: normocephalic and head atraumatic Extremities: + upper extremity abnormal to inspection (left upper extremity edema) Neurologic: PERRL, EOMI, accommodation nl, no face palsy, no dysarthria Psychiatric: A+Ox3, euthymic affect Results & Data Vital Signs (Past 12 Hours) Vital Signs Temp Pulse Resp BP Pulse Ox 06/30/19 07:32 36.7 C 73 20 117/77 97
[2019-06-30] MEDS ORDERED: WARFARIN SOD 2.5 MG TAB PO SCH (16:00)
[2019-07-01 06:16] LABS: INR 2.2 (0.9-1.1); Prothrombin Time 21.1 Seconds (9.0-12.0)
[2019-07-01] MEDS: INSULIN ASPART 100 UNITS/ML 3 ML PEN SC SCH ×4 (08:46→21:32)
[2019-07-01] MEDS: MICONAZOLE NITRATE POWDER 43 GM EXT PRN (08:46)
[2019-07-01] MEDS: ROSUVASTATIN CALCIUM 10 MG TAB PO SCH (08:51)
[2019-07-01] MEDS: cephALEXin 500 MG CAP PO SCH ×2 (08:52→21:31)
[2019-07-01] MEDS: OXYBUTYNIN CHLORIDE XL 5 MG TABCR PO SCH (08:52)
[2019-07-01] MEDS: FUROSEMIDE 20 MG TAB PO SCH (08:52)
[2019-07-01] MEDS: ASPIRIN 325 MG ECTAB PO SCH (08:52)
[2019-07-01] MEDS: METOPROLOL SUCC 50MG EXT REL TAB PO SCH (08:53)
[2019-07-01] MEDS: LISINOPRIL 10 MG TAB PO SCH ×2 (08:53→21:31)
[2019-07-01] MEDS: methIMAzole 5 MG TABLET PO SCH (08:53)
[2019-07-01] MEDS: FLUOXETINE HCL 10 MG CAP PO SCH (08:53)
[2019-07-01] MEDS: ACETAMINOPHEN 325 MG TAB PO PRN ×2 (08:54→17:18)
--- NOTE | 2019-07-01 13:58 | Hospitalist Progress Note ---
Date of Service July 01, 2019 Assessment & Plan (1) Severe sepsis: Bacteremia Urinary tract infection -fever on admission with elevated white blood cell count -had been on cefepime which was started empirically on admission, stopped IV vancomycin on 06/26/19 -urinary tract infection with pansensitive Escherichia coli and the admission blood culture of gram negative bacilli in 1 of the two 06/24/19 blood cultures has speciated as a pansensitive E.coli -repeat blood cultures from 06/26/19 no growth to date -from 06/27/19 to 06/28/19, patient was transitioned from cefepime to Keflex 500 mg BID to to complete 14 days from first negative blood culture (06/26/19) so last day will be 07/10/19; tolerating oral antibiotics and continue. Patient has been afebrile since 06/24/19 History of sick sinus syndrome History aortic stenosis status post TAVR (11/2017) Presence of pacemaker Anticoagulated on coumadin anticoagulation therapy -patient is paced on telemetry monitoring -INR goal is 2 to 3 -current INR at goal, continue coumadin Cough and left upper extremity edema likely due to volume overload from IV fluids Diastolic Dysfunction -06/26/19 Transthoracic echocardiogram with normal ejection fraction and grade 2 diastolic dysfunction; no vegetations detected on Transthoracic echocardiogram -06/26/19 Chest X ray clear -06/26/19 no right upper extremity DVT on ultrasound -has received Lasix Hypertension -IV Lasix 20 mg x 1 ordered on 06/25/19 as patient concerned about upper extremity swelling while on IV fluids -additional 20 mg IV BID Lasix ordered on 06/26/19 -IV Lasix 20 mg IV x 1 given on 06/27/19 -currently on Lasix 20 mg oral on 06/28/19, continue -on lisinopril 10 mg BID Fall Ambulatory Dysfunction -Fall at home -based on patient's deficits with mobility and results of strength testing by PT/OT, they recommend physical rehabilitation placement after hospital stay -patient awaiting for bed to [facility] Rhabdomyolysis: -rhabdomyolysis secondary to trauma (and being on the floor for around 10 hours at home) -admission creatinine kinase above 7000 -creatinine kinase downtrending after IV fluids, continue to trend creatinine kinase, oral hydration for now -last check creatinine kinase is 433 and downtrending NOE (acute kidney injury): acute kidney injury on chronic kidney disease -creatinine downtrending with IV fluids, oral hydration for now -last check creatinine is 1.20 and downtrending Hyperthyroidism -stable recent outpatient TSH on current methimazole -continue methimazole Diabetes Mellitus without penitentiary use of insulin and without complications -hold home dose glipizide -sliding scale insulin while inpatient chronic anemia -stable hemoglobin DVT prophylaxis: on coumadin Full code Patient's daughter Ms. Sofia Yoo, contact #[phone]. Disposition: -patient awaiting for bed to [facility] Subjective Patient and her daughter was informed that [facility] cannot take patient today. no chest pain. no palpitations. breathing on room air. no shortness of breath. no abdomen pain. no vomiting. no headache. no dizziness. Physical Exam Constitutional: WD/WN, vitals as above comfortable Eyes: PERRL, conjunctivae normal, anicteric sclerae EOM intact bilaterally ENMT: external ear and nose normal, oropharynx normal Neck: normal visual inspection Respiratory: normal respiratory effort, lungs clear to auscultation Cardiovascular: Rate/Rhythm: + bradycardic Gastrointestinal (Abdomen): normal bowel sounds, soft, nontender, no hepatosplenomegaly Musculoskeletal: Head/Neck/Chest: normocephalic and head atraumatic left above wrist puffiness resolving Neurologic: PERRL, EOMI, accommodation nl, no face palsy, no dysarthria Psychiatric: A+Ox3, euthymic affect Results & Data Vital Signs (Past 12 Hours) Vital Signs Temp Pulse Resp BP Pulse Ox 07/01/19 07:41 36.7 C 61 20 131/80 96
[2019-07-01] MEDS: WARFARIN SOD 5 MG TAB PO SCH (17:11)
[2019-07-02] MEDS: ACETAMINOPHEN 325 MG TAB PO PRN (03:31)
[2019-07-02 06:16] LABS: Hematocrit (blood only) 33.4 % (37-47); Hemoglobin 10.6 g/dL (12.0-16.0); Mean Corpuscular Hemoglobin 28.1 pg (25-34); Mean Corpuscular Hgb Conc 31.7 g/dL (32-36); Mean Corpuscular Volume 88.6 fL (80-100); Mean Platelet Volume 9.5 fL (7.4-10.4); Platelet Count 372 K/uL (130-400); RDW Standard Deviation 48.8 fL (36.4-46.3); Red Blood Count 3.77 M/uL (4.2-5.4); White Blood Count 11.07 K/uL (4.8-10.8)
[2019-07-02 06:27] LABS: INR 2.2 (0.9-1.1); Prothrombin Time 21.6 Seconds (9.0-12.0)
[2019-07-02 06:46] LABS: Basophils # (auto) 0.08 K/uL (0-0.2); Basophils % (auto) 0.7 %; Eosinophils # (auto) 0.23 K/uL (0-0.5); Eosinophils % (auto) 2.1 %; Immature Granulocytes # (auto) 0.72 K/uL (0.00-0.02); Immature Granulocytes % (auto) 6.5 %; Lymphocytes # (auto) 2.31 K/uL (1.2-3.4); Lymphocytes % (auto) 20.9 %; Monocytes # (auto) 0.83 K/uL (0.11-0.59); Monocytes % (auto) 7.5 %; Neutrophils % (auto) 62.3 %; RBC Morphology Unremarkable
[2019-07-02 06:50] LABS: Albumin Level 2.7 gm/dl (3.4-5.0); BUN Creatinine Ratio 27.7 (10-20); Calcium 8.2 mg/dl (8.5-10.1); Creatinine Clr Calc Pharmacy 43.9 ml/min; Est GFR (African American) 45.5; Est GFR (Non-African American) 39.3; Potassium 4.6 mmol/L (3.5-5.1)
[2019-07-02 06:53] LABS: Albumin Globulin Ratio 0.6 (0.9-2); Bilirubin,Total 0.4 mg/dl (0.2-1); Globulin 4.3 gm/dl (2.5-4.0)
[2019-07-02] MEDS: INSULIN ASPART 100 UNITS/ML 3 ML PEN SC SCH ×2 (08:58→12:42)
[2019-07-02] MEDS: MICONAZOLE NITRATE POWDER 43 GM EXT PRN (09:03)
[2019-07-02] MEDS: OXYBUTYNIN CHLORIDE XL 5 MG TABCR PO SCH (09:03)
[2019-07-02] MEDS: ROSUVASTATIN CALCIUM 10 MG TAB PO SCH (09:03)
[2019-07-02] MEDS: ASPIRIN 325 MG ECTAB PO SCH (09:04)
[2019-07-02] MEDS: cephALEXin 500 MG CAP PO SCH (09:04)
[2019-07-02] MEDS: FUROSEMIDE 20 MG TAB PO SCH (09:04)
[2019-07-02] MEDS: FLUOXETINE HCL 10 MG CAP PO SCH (09:05)
[2019-07-02] MEDS: methIMAzole 5 MG TABLET PO SCH (09:05)
[2019-07-02] MEDS: METOPROLOL SUCC 50MG EXT REL TAB PO SCH (09:05)
[2019-07-02] MEDS: LISINOPRIL 10 MG TAB PO SCH (09:06)
--- NOTE | 2019-07-02 11:30 | Hospitalist Progress Note ---
Date of Service July 02, 2019 Assessment & Plan (1) Severe sepsis: Bacteremia Urinary tract infection -fever on admission with elevated white blood cell count -had been on cefepime which was started empirically on admission, stopped IV vancomycin on 06/26/19 -urinary tract infection with pansensitive Escherichia coli and the admission blood culture of gram negative bacilli in 1 of the two 06/24/19 blood cultures has speciated as a pansensitive E.coli -repeat blood cultures from 06/26/19 no growth to date -from 06/27/19 to 06/28/19, patient was transitioned from cefepime to Keflex 500 mg BID to to complete 14 days from first negative blood culture (06/26/19) so last day will be 07/10/19; tolerating oral antibiotics and continue. Patient has been afebrile since 06/24/19 -discharge to [facility] from 06/27/19 to 06/28/19, patient was transitioned from cefepime to Keflex 500 mg BID to to complete 14 days from first negative blood culture (06/26/19) so last day will be 07/10/19 History of sick sinus syndrome History aortic stenosis status post TAVR (11/2017) Presence of pacemaker Anticoagulated on coumadin anticoagulation therapy -patient is paced on telemetry monitoring -INR goal is 2 to 3 -current INR at goal, continue coumadin Cough and left upper extremity edema likely due to volume overload from IV fluids Diastolic Dysfunction -06/26/19 Transthoracic echocardiogram with normal ejection fraction and grade 2 diastolic dysfunction; no vegetations detected on Transthoracic echocardiogram -06/26/19 Chest X ray clear -06/26/19 no right upper extremity DVT on ultrasound -has received Lasix Hypertension -IV Lasix 20 mg x 1 ordered on 06/25/19 as patient concerned about upper extremity swelling while on IV fluids -additional 20 mg IV BID Lasix ordered on 06/26/19 -IV Lasix 20 mg IV x 1 given on 06/27/19 -currently on Lasix 20 mg oral on 06/28/19, continue -on lisinopril 10 mg BID Fall Ambulatory Dysfunction -Fall at home -based on patient's deficits with mobility and results of strength testing by PT/OT, they recommend physical rehabilitation placement after hospital stay -patient awaiting for bed to [facility] Rhabdomyolysis: -rhabdomyolysis secondary to trauma (and being on the floor for around 10 hours at home) -admission creatinine kinase above 7000 -creatinine kinase downtrending after IV fluids, continue to trend creatinine kinase, oral hydration for now -last check creatinine kinase is 433 and downtrending NOE (acute kidney injury): acute kidney injury on chronic kidney disease -creatinine downtrending with IV fluids, oral hydration for now -last check creatinine is 1.20 and downtrending Hyperthyroidism -stable recent outpatient TSH on current methimazole -continue methimazole Diabetes Mellitus without fci use of insulin and without complications -patient may resume outpatient oral anti-hyperglycemics on discharge instead of sliding scale insulin while hospitalized chronic anemia -stable hemoglobin DVT prophylaxis: on coumadin Full code Patient's daughter Ms. Sofia Yoo, contact #[phone]. Discharge Diagnosis: sepsis secondary to E.coli Bactermia and E.coli Urinary Tract Infection; Fall with Ambulatory Dysfunction; Rhabdomyolysis and acute kidney injury; Diastolic Dysfunction; Anticoagulated on coumadin anticoagulation therapy; Anemia; Diabetes Mellitus without terminal superintendent use of insulin and without complications Disposition discharge to [facility] from 06/27/19 to 06/28/19, patient was transitioned from cefepime to Keflex 500 mg BID to to complete 14 days from first negative blood culture (06/26/19) so last day will be 07/10/19 follow up with primary care doctor in 1 weeks for labs including complete blood count and comprehensive metabolic panel and INR level Other follow ups 07/11/2019 2:00 PM Provider Wilmar Curtis PA-C Department Cardiology, [facility] 07/18/2019 11:15 AM Provider [facility], [facility] 07/18/2019 11:30 AM Provider [facility] Department Cardiology, [facility] Subjective patient do well. no chest pain. no shortness of breath. no fevers. no abdomen pain. no vomitting. no dizziness. no lightheaedness Physical Exam Constitutional: WD/WN, vitals as above comfortable Eyes: PERRL, conjunctivae normal, anicteric sclerae EOM intact bilaterally ENMT: external ear and nose normal, oropharynx normal Neck: normal visual inspection Respiratory: normal respiratory effort, lungs clear to auscultation Cardiovascular: Rate/Rhythm: + bradycardic Gastrointestinal (Abdomen): normal bowel sounds, soft, nontender, no hepatosplenomegaly Musculoskeletal: Head/Neck/Chest: normocephalic and head atraumatic Extremities: + upper extremity abnormal to inspection (mild left upper extremity edema) Neurologic: PERRL, EOMI, accommodation nl, no face palsy, no dysarthria Psychiatric: A+Ox3, euthymic affect Results & Data Vital Signs (Past 12 Hours) Vital Signs Temp Pulse Resp BP Pulse Ox 07/02/19 07:59 36.6 C 65 18 135/66 95 07/01/19 23:56 36.6 C 65 20 132/77 96
--- NOTE | 2019-07-02 11:39 | Discharge Summary ---
Date of Service July 02, 2019 Admission HPI Per Admitting Provider History obtained from patient, family, and records. Medical history significant for SSS sp PPM/hx PE on Coumadin, aortic stenosis status post TAVR (11/2017), hypertension, hyperlipidemia, breast cancer right status post surgery/radiation, hyperthyroidism, DM 2 on oral medications, CRI (baseline creatinine 1.1-1.3) chronic anemia baseline hemoglobin of 11 Recent confinement January 2018 under Cardiology service for SSS sp PPM. Last 2 days at home patient noted to be falling, just feeling weak as per daughter. Patient fell on the ground while going to the bathroom yesterday morning. Unable to get up. Life alert device would not work. Family checked on patient after patient's sister got worried about patient not calling her yesterday afternoon. Patient found on the floor. Denies chest pain, shortness of breath, cough, abdominal pain, diarrhea, dysuria. Patient received Vancomycin and Cefepime for sepsis at the ER. Medical History as above Surgical History : TAVR, PPM knee surgery, mastectomy, lymphadenectomy, knee surgery, Family History : Breast cancer, colon cancer, heart disease, diabetes, alcohol abuse Personal/Social history : Non-smoker, no EtOH intake, retired [employer] Admission Exam Per Admitting Provider GENERAL: Comfortable, obese, slightly hard of hearing, no respiratory distress, looks younger than stated age SKIN: Pallor , warm HEENT: Pale palpebral conjunctivae, no ptosis, dry buccal mucosa NECK : Supple, short neck, no tenderness CHEST : CTA, no tenderness HEART : RRR, systolic murmur ABDOMEN: distention, nontender EXTREMITIES : Minimal LE swelling, no LE tenderness, no other conspicuous deformities noted NEUROLOGIC : Coherent, no facial asymmetry, no other gross focality Principal Diagnosis sepsis secondary to E.coli Bactermia and E.coli Urinary Tract Infection; Fall with Ambulatory Dysfunction; Rhabdomyolysis and acute kidney injury; Diastolic Dysfunction; Anticoagulated on coumadin anticoagulation therapy; Anemia; Diabetes Mellitus without terminal supervisor use of insulin and without complications Discharge Exam Constitutional WD/WN, vitals as above comfortable Eyes PERRL, conjunctivae normal, anicteric sclerae EOM intact bilaterally ENMT external ear and nose normal, oropharynx normal Neck normal visual inspection Respiratory normal respiratory effort, lungs clear to auscultation Cardiovascular Rate/Rhythm: + bradycardic Gastrointestinal (Abdomen) normal bowel sounds, soft, nontender, no hepatosplenomegaly Musculoskeletal Head/Neck/Chest: normocephalic and head atraumatic Extremities: + upper extremity abnormal to inspection (mild left upper extremity edema) Neurologic PERRL, EOMI, accommodation nl, no face palsy, no dysarthria Psychiatric A+Ox3, euthymic affect Discharge Data Allergies Allergy/AdvReac Type Severity Reaction Status Date / Time Cipro Allergy Intermediate RASH? Verified 01/29/18 06:42 ciprofloxacin AdvReac Intermediate RASH? Verified 06/25/19 19:07 ropinirole AdvReac Intermediate COUGH,N&V Verified 06/25/19 00:21 atorvastatin AdvReac Mild LEG CRAMPS Verified 06/25/19 00:21 Consultations 06/25/19 01:52 ED Decision to Admit Stat 06/25/19 03:50 Consult Case Management - Discharge Planning Routine 06/27/19 08:00 Consult Infectious Diseases Routine Ordered Studies 06/24/19 23:50 CT cervical spine wo con Urgent CT head/brain wo con Urgent CT lumbar spine wo con Urgent 06/26/19 11:31 US venous doppler UE LT Stat Hospital Course (1) Severe sepsis: Bacteremia Urinary tract infection -fever on admission with elevated white blood cell count -had been on cefepime which was started empirically on admission, stopped IV vancomycin on 06/26/19 -urinary tract infection with pansensitive Escherichia coli and the admission blood culture of gram negative bacilli in 1 of the two 06/24/19 blood cultures has speciated as a pansensitive E.coli -repeat blood cultures from 06/26/19 no growth to date -from 06/27/19 to 06/28/19, patient was transitioned from cefepime to Keflex 500 mg BID to to complete 14 days from first negative blood culture (06/26/19) so last day will be 07/10/19; tolerating oral antibiotics and continue. Patient has been afebrile since 06/24/19 -discharge to [facility] from 06/27/19 to 06/28/19, patient was transitioned from cefepime to Keflex 500 mg BID to to complete 14 days from first negative blood culture (06/26/19) so last day will be 07/10/19 History of sick sinus syndrome History aortic stenosis status post TAVR (11/2017) Presence of pacemaker Anticoagulated on coumadin anticoagulation therapy -patient is paced on telemetry monitoring -INR goal is 2 to 3 -current INR at goal, continue coumadin Cough and left upper extremity edema likely due to volume overload from IV fluids Diastolic Dysfunction -06/26/19 Transthoracic echocardiogram with normal ejection fraction and grade 2 diastolic dysfunction; no vegetations detected on Transthoracic echocardiogram -06/26/19 Chest X ray clear -06/26/19 no right upper extremity DVT on ultrasound -has received Lasix Hypertension -IV Lasix 20 mg x 1 ordered on 06/25/19 as patient concerned about upper extremity swelling while on IV fluids -additional 20 mg IV BID Lasix ordered on 06/26/19 -IV Lasix 20 mg IV x 1 given on 06/27/19 -currently on Lasix 20 mg oral on 06/28/19, continue -on lisinopril 10 mg BID Fall Ambulatory Dysfunction -Fall at home -based on patient's deficits with mobility and results of strength testing by PT/OT, they recommend physical rehabilitation placement after hospital stay -patient awaiting for bed to [facility] Rhabdomyolysis: -rhabdomyolysis secondary to trauma (and being on the floor for around 10 hours at home) -admission creatinine kinase above 7000 -creatinine kinase downtrending after IV fluids, continue to trend creatinine kinase, oral hydration for now -last check creatinine kinase is 433 and downtrending NOE (acute kidney injury): acute kidney injury on chronic kidney disease -creatinine downtrending with IV fluids, oral hydration for now -last check creatinine is 1.20 and downtrending Hyperthyroidism -stable recent outpatient TSH on current methimazole -continue methimazole Diabetes Mellitus without terminal supervisor use of insulin and without complications -patient may resume outpatient oral anti-hyperglycemics on discharge instead of sliding scale insulin while hospitalized chronic anemia -stable hemoglobin DVT prophylaxis: on coumadin Full code Patient's daughter Ms. Sofia Yoo, contact #[phone]. Discharge Diagnosis: sepsis secondary to E.coli Bactermia and E.coli Urinary Tract Infection; Fall with Ambulatory Dysfunction; Rhabdomyolysis and acute kidney injury; Diastolic Dysfunction; Anticoagulated on coumadin anticoagulation therapy; Anemia; Diabetes Mellitus without senior living use of insulin and without complications Disposition discharge to [facility] from 06/27/19 to 06/28/19, patient was transitioned from cefepime to Keflex 500 mg BID to to complete 14 days from first negative blood culture (06/26/19) so last day will be 07/10/19 follow up with primary care doctor in 1 weeks for labs including complete blood count and comprehensive metabolic panel and INR level Other follow ups 07/11/2019 2:00 PM Provider Wilmar Curtis PA-C Department Cardiology, [facility] 07/18/2019 11:15 AM Provider [facility], [facility] 07/18/2019 11:30 AM Provider [facility] Cardiology, [facility] Total Time Total Time Spent Total Time Spent (In Minutes): 40 minutes Total Time Includes: Examination of the Patient, Discharge Planning, Medication Reconciliation and Communication With Other Providers Discharge Plan Discharge Items Patient Disposition: Transfer [facility] Reason For Visit: SEPSIS Discharge Diagnosis: sepsis secondary to E.coli Bactermia and E.coli Urinary Tract Infection; Fall with Ambulatory Dysfunction; Rhabdomyolysis and acute kidney injury; Diastolic Dysfunction; Anticoagulated on coumadin anticoagulation therapy; Anemia; Diabetes Mellitus without senior living use of insulin and without complications Condition on Discharge: Good Activity: Per Instructions section Non-emergency contact: Primary Care Provider Call non-emergency contact if: you have any medication questions Follow-up/Referrals: Kayla Martinez PA-C [Primary Care Provider] - Diet: Carb Consistent or DM2 and Heart Healthy Addtl Attending Provider Instructions: discharge to [facility] from 06/27/19 to 06/28/19, patient was transitioned from cefepime to Keflex 500 mg BID to to complete 14 days from first negative blood culture (06/26/19) so last day will be 07/10/19 follow up with primary care doctor in 1 weeks fro labs including complete blood count and comprehensive metabolic panel and INR level Other follow ups 07/11/2019 2:00 PM Provider Wilmar Curtis PA-C Department Cardiology, [facility] 07/18/2019 11:15 AM Provider [facility], [facility] 07/18/2019 11:30 AM Provider [facility] Cardiology, [facility] Pending Studies at Discharge: No Stand-Alone Forms: My [facility] Skilled Items Patient informed of condition?: Yes DNR: No Discharge Level of Care: Skilled Communicable Disease: No Discharge Prognosis: Stable Lines: None Urinary Catheter: No Medications and DC Order Prescriptions: New warfarin [Coumadin] 2.5 mg Tablet 2.5 mg PO MoTh@1600 30 Days Qty: 8 RF: 0 warfarin [Coumadin] 5 mg Tablet 5 mg PO SuTuWeFrSa@1600 30 Days Qty: 22 RF: 0 acetaminophen 325 mg tablet 325 mg PO Q6H PRN (Reason: fever or pain) 5 Days Qty: 20 RF: 0 cephalexin 500 mg Capsule 500 mg PO BID 9 Days Qty: 18 RF: 0 Continued hydrocortisone 2.5 % Cream 1 applic TOPICAL BID PRN (Reason: redness) RF: 0 vitamin E Cream 1 applic TOPICAL BID PRN (Reason: dryness) RF: 0 Tylenol Pain Relief 1 - 2 tab PO DIRECTED RF: 0 loratadine 10 mg Tablet 10 mg PO DAILY PRN (Reason: allergies) RF: 0 oxybutynin chloride [Ditropan XL] 10 mg Tablet Extended Release 24hr 10 mg PO DAILY RF: 0 aspirin 325 mg Tablet 325 mg PO DAILY RF: 0 fluoxetine 10 mg Capsule 10 mg PO DAILY RF: 0 metoprolol succinate [Toprol XL] 50 mg Tablet Extended Release 24 Hr 50 mg PO DAILY RF: 0 lisinopril 10 mg Tablet 10 mg PO BID RF: 0 furosemide [Lasix] 20 mg Tablet 20 mg PO DAILY RF: 0 potassium chloride 10 mEq Tablet Extended Release 10 meq PO DAILY RF: 0 glipizide 2.5 mg Tablet Extended Release 24hr 2.5 mg PO DAILY RF: 0 rosuvastatin [Crestor] 10 mg Tablet 10 mg PO DAILY RF: 0 methimazole [Tapazole] 5 mg Tablet 5 mg PO DAILY RF: 0 meclizine 12.5 mg Tablet 12.5 mg PO DIRECTED PRN (Reason: Dizziness) RF: 0 vitamin E 1,000 unit Capsule 1,000 unit PO DAILY RF: 0 biotin 1,000 mcg Tablet,Chewable 1,000 mcg PO DAILY RF: 0 Vitron-C 65 mg iron- 125 mg Tablet,Delayed Release (Dr/Ec) 1 tab PO DIRECTED RF: 0 Discontinued ibuprofen 100 mg Tablet 200 mg PO Q6H PRN (Reason: pain/fever) RF: 0 Sinus Congestion-Pain(chlorph) 2-5-325 mg Tablet 2 tab PO Q6H PRN (Reason: sinus congestion) RF: 0 naproxen sodium [Aleve] 220 mg Tablet 220 mg PO Q8H PRN (Reason: pain/fever) RF: 0 warfarin [Coumadin] 2.5 mg Tablet 2.5 mg PO 2XWK RF: 0 warfarin [Coumadin] 5 mg Tablet 5 mg PO 5XWK RF: 0 Admission Data Admit Date/Time: 06/25/19 03:04 Attending Provider: Jc Albert Admit Provider: Zacarias Shelton Primary Care Provider: Kayla Martinez Other Providers: Zacarias Shelton ; Nasima Bai
[2019-07-03] MEDS ORDERED: WARFARIN SOD 2.5 MG TAB PO SCH (16:00)
== END 2019-07-02 14:30 | DRG 872 ==
LOC: ED 23:23 → 2N 06-25 03:04